=== PATIENT | female | born 1960 | race Caucasian/White ===

== ENCOUNTER 2018-09-13 12:18 | Outpatient (CLI) | payer OTHER, BC, SELFPAY ==
[2018-09-13 14:08] LABS: ALT 159 U/L (12-78); AST 87 U/L (15-37); Alkaline Phosphatase 97 U/L (46-116); Anion Gap 7.4 mmol/L (3-11); BUN 16 mg/dL (7-18); Bilirubin, Total 0.5 mg/dL (0.2-1.0); CO2 27.6 mmol/L (21.0-32.0); CREATININE 0.74 mg/dL (0.55-1.02); Chloride 103 mmol/L (98-107); Cholesterol 196 mg/dL (50-200); Glucose 92 mg/dL (70-100); HDL Cholesterol 52 mg/dL (40-60); LDL CHOLESTEROL 128 mg/dL (<100); Potassium 3.9 mmol/L (3.5-5.1); Sodium 138 mmol/L (136-145); Total Protein 7.4 g/dL (6.4-8.2); Triglyceride 121 mg/dL (30-150); Vitamin B12 422 pg/mL (193-986)
[2018-09-15 09:43] LABS: Hepatitis C Ab w Rflx HCV PCR Negative (NEGAT)
== END 2018-09-13 12:38 ==
PROVIDERS: PCP Family Medicine; Visit Provider Family Medicine
DX: Z00.00 Encounter for general adult medical examination without abnormal findings (principal); E07.9 Disorder of thyroid, unspecified; E78.00 Pure hypercholesterolemia, unspecified; R74.0 Nonspecific elevation of levels of transaminase and lactic acid dehydrogenase [LDH]; M79.644 Pain in right finger(s); M85.80 Other specified disorders of bone density and structure, unspecified site; K76.0 Fatty (change of) liver, not elsewhere classified
CPT/HCPCS: 36415; 80053; 80061; 83721; 86803; 82607; 84439; 84443

== ENCOUNTER 2018-09-27 00:35 | Outpatient (CLI) | payer OTHER, BC, SELFPAY ==
--- NOTE | 2018-09-27 14:15 | DI.MAMMO_ITS ---
SYMPTOM/DIAGNOSIS: SCREENING, Z12.31 MAMMOGRAMS: Mammograms were interpreted according to the usual protocol including computer analysis with CAD system, tomosynthesis and C view imaging. Comparison is made with exams from [id number]. The breasts are composed of fatty density tissue, breast density, Category A. No suspicious masses or suspicious microcalcifications are seen. There has been no significant change. IMPRESSION: Category 1, negative mammogram. Yearly screening mammography is recommended. [facility] ASSESSMENT OF FINDINGS: Negative. Category 1. Patient will receive a letter notifying them of these results. BI-RAD category A. The breasts are almost entirely fatty.
== END 2018-09-27 00:55 ==
PROVIDERS: PCP Family Medicine
DX: Z12.31 Encounter for screening mammogram for malignant neoplasm of breast (principal)
CPT/HCPCS: 77063; 77067

== ENCOUNTER 2018-09-27 01:25 | Outpatient (CLI) | payer OTHER, BC, SELFPAY ==
--- NOTE | 2018-09-27 06:16 | DI.US_ITS ---
SYMPTOM/DIAGNOSIS: ELEVATED LFT'S, FATTY LIVER, K76.0 ABDOMEN ULTRASOUND: Comparison is made with 05/29/09. The liver is enlarged and shows increased echogenicity, consistent with diffuse fatty infiltration. The posterior portions of the liver are not well seen. No focal liver lesions are identified. There is no evidence of biliary dilatation. A few echogenic foci are seen adherent to the brown of the gallbladder, likely representing incidental cholesterol polyps. No stones or wall thickening is seen. The kidneys, spleen and visualized portions of the pancreas are unremarkable. There is no ascites. IMPRESSION: Enlarged fatty liver.
--- NOTE | 2018-09-27 13:08 | DI.RAD_ITS ---
SYMPTOMS/DIAGNOSIS: OSTEOPENIA DEXA SCAN WITH NICK: The NICK image shows mild anterior wedging of T 11 and T 12. The bone mineral density measurements of the lumbar spine correspond to a total T score of -2.1, consistent with osteopenia. The has been a 22.8% decrease when compared with 2004. The bone mineral density measurements of the left hip correspond to a total T score of 0.1 and a femoral neck T score of -0.8, in the normal range. This is not significantly changed from the previous exam. The bone mineral density measurements of the left forearm correspond to a T score of the distal third of 0.4, in the normal range. The forearm was not analyzed in 2004. IMPRESSION: Osteopenia of the lumbar spine with decrease when compared with 2004 of 22.8%. Stable normal bone mineral density of the left hip. Normal bone density of the left forearm.
== END 2018-09-27 01:45 ==
PROVIDERS: PCP Family Medicine; Visit Provider Family Medicine
DX: Z12.31 Encounter for screening mammogram for malignant neoplasm of breast (principal); K76.0 Fatty (change of) liver, not elsewhere classified; R16.1 Splenomegaly, not elsewhere classified; M85.88 Other specified disorders of bone density and structure, other site
CPT/HCPCS: 77080; 76700

== ENCOUNTER 2019-07-05 01:05 | Outpatient (CLI) | payer OTHER, BC, SELFPAY ==
[2019-07-05 14:51] LABS: TSH (W/Ref FT4) 4.84 uIU/mL (0.36-3.74)
[2019-07-05 15:09] LABS: FREE T4 0.85 ng/dL (0.76-1.46)
== END 2019-07-05 01:25 ==
PROVIDERS: PCP Family Medicine; Visit Provider Family Medicine
DX: E03.9 Hypothyroidism, unspecified (principal); Z11.59 Encounter for screening for other viral diseases
CPT/HCPCS: 36415; 86704; 86706; 86803; 87340; 84439; 84443

== ENCOUNTER 2019-07-11 11:14 | Emergency (ER) | payer OTHER, BC, SELFPAY ==
[2019-07-11] VITALS (18 sets, daily range): BP systolic 129–150; BP diastolic 56–72; PULSE 73–84; RESP 20; TEMP 36.6; O2SAT 88–98
--- NOTE | 2019-07-11 11:36 | ED.GENADUL_ITS ---
Discharge Plan Disposition Patient Disposition: HOME Condition: Stable Discharge Details Chief Complaint: Abd Prob Clinical Impression: Abdominal pain, RLQ, Diverticulitis Primary Care Provider: Sarah Wang ED Provider: Sandeep Quiros Home Meds and New Rx's Prescriptions: New ciprofloxacin HCl [Cipro] 500 mg tablet 500 mg PO BID 10 Days Qty: 20 RF: 0 metronidazole [Flagyl] 500 mg tablet 500 mg PO TID 10 Days Qty: 30 RF: 0 hydrocodone-acetaminophen [Burton] 7.5-325 mg tablet 1 tab PO BID PRN (Reason: pain) Qty: 6 RF: 0 No Action levothyroxine 50 mcg tablet 50 mcg PO DAILY Qty: 90 RF: 5 Discharge Instructions Instructions: Diverticulitis (ED) Additional Instructions: At this time we feel that your symptoms are secondary to very early diverticulitis. Please take the Cipro and Flagyl as directed. Please stick with a liquid diet. Please take a maximum of 1000 mg of Tylenol every 6 hours and 800 mg of ibuprofen every 6 hours. I have included a few Burton's for pain, take these only as needed for breakthrough pain. Do not take Tylenol with them as a do have Tylenol in them already. If you notice any worsening of your symptoms, or any new symptoms such as worsening abdominal pain, changes in your abdominal pain, vomiting, diarrhea, fever, chills, shortness of breath, chest pain, numbness, weakness, or fainting , please return immediately to the emergency department for reevaluation. Please follow up with your primary care provider as soon as possible for reassessment and reevaluation. As always, it was a pleasure participating in your medical care today. Stand Alone Forms: Work Release Referrals: Sarah Wang MD, [place] [Primary Care Provider] - Medical Decision Making This is a pleasant 58-year-old female with no significant past medical history except for thyroid disease, Orantes, previous diverticulitis, will presents today for evaluation of abdominal pain for the last 2 to 3 days, sharp in nature, oscillating in severity but notably painful. Significant worsening over the last few days. One episode of diarrhea 2 to 3 days ago but none since. No vomiting. Exam demonstrates notable reproducible tenderness in the right lower quadrant, voluntary guarding, positive Rovsing sign. Differential includes and is highest for appendicitis versus atypical diverticulitis. She has had a tubal ligation in the past. Urinary symptoms less likely. We will get a CT scan, treat her pain, rehydrate and reassess. 1:23 PM The patient's pain is only mildly improved with the morphine. We will be adding Dilaudid. Vital signs remained stable, laboratory work-up relatively unremarkable, CT scan shows normal appendix per virtual radiology, however a notably distended gallbladder. Repeat exam continues to demonstrate the focality of her pain being in the right lower abdominal quadrant, and it is still notably severe. She does have mild right upper quadrant tenderness which does refer down to the right lower though that is reproducible on palpation. Review of the CT scan does show that her gallbladder both is distended but also hangs relatively low, this may be the cause of this. We will get an ultrasound for evaluation of acute cholecystitis. 3:35 PM Ultrasound shows no evidence of acute cholecystitis per radiology, it is distended, and does have 3 internal polyps though. No evidence of obstruction. Repeat review of CT scan with Dr. Rawls, she states that she feels that diverticulitis is notably less likely, and that the inflammation is significantly mild. Repeat assessment continues to demonstrate notable a bdominal tenderness. She has no history of A. fib, and signs and symptoms are appearing consistent with mesenteric ischemia. However her pain is notably persistent. I have asked Dr. Bravo to come and assess the patient secondary to her notable atypical presentation in spite of relatively unremarkable work- up. [address] Bravo has seen and assessed the patient. She too agrees that the ultr asound and CT scan are notably unremarkable in conjunction with her laboratory work-up. She feels that the patient's symptoms may be secondary to very early diverticulitis that is not yet clinically evident on CT scan. She does recommend starting with Cipro and Flagyl and liquid diet. Currently her abdomen is stable, nondistended, with no evidence of an acute surgical abdomen. I do agree with the plan. Patient will be discharged after being given her first dose of antibiotics here. In a long and lengthy discussion with the patient and her regarding red flags for which to return the importance of close follow-up with her PCP. I have extensively reviewed the treatment plan and discharge instructions with the patient and their family. I have addressed all patient concerns at this time. The patient and family was made aware of what symptoms to monitor for that would warrant a return to the emergency department. Discussed the plan with the patient and family, they demonstrate verbal understanding and agreement with our assessment and plan at this time. Exam(s) a US:US abdomen limited EXAM: US ABDOMEN LIMITED CLINICAL HISTORY: eval GB for acute cholecystitis TECHNIQUE: Ultrasound performed using standard protocol. COMPARISON: US ABDOMEN from 09/27/2018 CT ABDOMEN AND PELVIS W from 07/11/2019 FINDINGS: The gallbladder appears somewhat distended; however, there is no evidence of wall thickening or pericholecystic fluid. A few small gallbladder polyps are again noted. The liver was not fully evaluated but shows fatty infiltration. IMPRESSION: Mildly distended gallbladder without definite evidence of acute cholecystitis. Gallbladder polyps are again demonstrated. FINDINGS: There is a tiny nodule at the right lung base, above the right diaphragm which appears unchanged when compared with 2014. The liver again shows fatty infiltration. There may have been slight improvement when compared with the previous exam. The gallbladder is somewhat distended, however, there is no evidence of wall thickening, pericholecystic fluid or inflammatory change. The appendix appears normal and projects in the right upper quadrant, adjacent to the lower border of the liver. There is no bowel dilatation. Numerous diverticula are seen involving the descending and sigmoid colon. The sigmoid colon is redundant. No definite inflammatory changes are seen. There is a moderate quantity of stool. The patient is status post hysterectomy. The bladder appears normal. The adrenals, pancreas and kidneys are unremarkable. The spleen is at the upper limits of normal in size. Degenerative changes are seen greatest in the lower thoracic region and at L4-5. The aorta shows mild calcification but is normal in diameter. IMPRESSION: 1. Enlarged fatty liver. 2. Diverticulosis without definite evidence of diverticulitis. Ordered By: Sandeep Quiros DO FINDINGS: Lungs: Bibasilar atelectasis 4.6 mm pulmonary nodule in the right lower lobe. Liver: Hepatic steatosis Hepatomegaly 24 cm. Gallbladder and bile ducts: Gallbladder is distended 10 cm. Pancreas: Normal. No ductal dilation. Spleen: Splenomegaly 15 cm. Adrenals: Normal. No mass. Kidneys and ureters: 13 mm right renal cyst Stomach and bowel: Diverticulosis of the rectosigmoid. Mild pericolonic inflammatory changes (4:75, 76) may represent mild diverticulitis in the appropriate clinical setting.. Appendix: Normal appendix. Intraperitoneal space: Unremarkable. No free air. No significant fluid collection. Vasculature: Unremarkable. No abdominal aortic aneurysm. Lymph nodes: Unremarkable. No enlarged lymph nodes. Bladder: Distended bladder 14 cm. Reproductive: Unremarkable as visualized. Bones/joints: Unremarkable. No acute fracture. Soft tissues: Unremarkable. IMPRESSION: 1. Gallbladder is distended 10 cm. recommend gallbladder ultrasound if acute cholecystitis is suspected clinically 2. Hepatomegaly 24 cm. 3. Normal appendix. 4. 4.6 mm pulmonary nodule in the right lower lobe. For patients at low risk (minimal or absent history of smoking and of other known risk factors), no routine follow-up is indicated. For patients at high risk (history of smoking or of other known risk factors), consider optional CT at 12 months. (Yojana et al., Fleischner Society, 2017) 5. Diverticulosis of the rectosigmoid. Mild pericolonic inflammatory changes (4:75, 76) may represent mild diverticulitis in the appropriate clinical setting.. 6. Splenomegaly 15 cm. Thank you for allowing us to participate in the care of your patient. Dictated and Authenticated by: Tim Bolanos MD 07/11/2019 1:15 PM Eastern Time ([place] & [place]) HPI General Date/Time Provider Initiated Documentation: 07/11/19 11:16 . HPI Narrative: This is a pleasant 58-year-old female with no significant past medical history except for high cholesterol, diverticulitis, hypothyroidism, and Orantes. She presents today for evaluation of abdominal pain. Patient states that for the last 2 to 3 days she has had mild right lower quadrant abdominal pain that has gradually worsened into a severe pain. It started with an episode of diarrhea 2 to 3 days ago, no continued diarrhea since then. No nausea, no vomiting. Pain is sharp in nature, constant but does oscillate in severity. It radiates slightly to the left. She denies any dysuria, hematuria or increase in urinary frequency. She denies any hematochezia melena or acholic stool. She states that this feels slightly different than her normal diverticulitis. She states that she felt every bump in her abdomen as she came in and drove over potholes. No other complaints at this time. No other modifying factors. Related Data Home Medications Medication Instructions Recorded Confirmed levothyroxine 50 mcg tablet 50 mcg PO DAILY #90 tab 09/17/18 ciprofloxacin HCl [Cipro] 500 mg PO BID 10 Days #20 tab 07/11/19 hydrocodone-acetaminophen [Burton] 1 tab PO BID PRN #6 tab 07/11/19 metronidazole [Flagyl] 500 mg PO TID 10 Days #30 tab 07/11/19 Previous Rx's Medication Instructions Recorded levothyroxine 50 mcg tablet 50 mcg PO DAILY #90 tab 09/17/18 ciprofloxacin HCl [Cipro] 500 mg PO BID 10 Days #20 tab 07/11/19 hydrocodone-acetaminophen [Burton] 1 tab PO BID PRN #6 tab 07/11/19 metronidazole [Flagyl] 500 mg PO TID 10 Days #30 tab 07/11/19 Allergies Allergy/AdvReac Type Severity Reaction Status Date / Time No Known Allergies Allergy Verified 07/11/19 11:22 General Stated Complaint: Abd Prob JOHNATHON: 3 Review of Systems All systems reviewed & are unremarkable except as noted in HPI and below PFSH Medical History (Updated 09/13/18 @ 14:04 by Yumi King NP) Actinic keratosis (Chronic 02/28/18) Fibrocystic disease of breast (Chronic 01/04/12) Gastroesophageal reflux disease with esophagitis (Chronic 01/20/01) Hypercholesterolemia (Chronic 05/27/09) Hypothyroidism (Chronic 02/28/18) Non-alcoholic fatty liver disease (Chronic) by ultrasound and enzyme testing Obstructive sleep apnea syndrome (Chronic 02/28/18) Bipap Surgical History (Updated 06/08/18 @ 14:35 by [employer] 1 [place]) Abdominal hysterectomy (~04/2001) MENORRHAGIA & ENDOMETRIOSIS Bilateral salpingectomy with oophorectomy (~04/2001) Colonoscopy - MAC (06/21/12) DR. Riley MORFIN Hemorrhoidectomy (06/21/12) DR. Riley MORFIN Open Carpal Tunnel release LEFT , Ectopic SHOULDER SURGERY Social History (Updated 09/14/18 @ 09:47 by Henrietta Oden) Smoking/Tobacco Use Status: Former Tobacco Use Quit Date: 08/23/10 Second Hand Exposure: No Alcohol Intake: current Alcohol Intake frequency: 0-2 drinks per day Drug use: Never Substance use type: does not use Caregiver/Support person: No Household members: spouse Pets and animals: No Sexually active: Yes Current gender identity: decline to answer Duration: decline to answer Frequency: 5-6 times per week Chelsi/Christian: [employer] Special chelsi needs: No Do you feel safe at home: Yes Do you feel safe in your relationship?: Yes History History 2 Para 1 Hx # Term Pregnancies Multiple births Hx # Pregnancies Ectopic pregnancies AB induced Hx Number of Living Children AB spontaneous Exam Narrative Exam Narrative: 1.Const: Well-nourished, Well-developed, appearing stated age 2.Eyes: PERRL, no conjunctival injection, and symmetrical lids. 3.ENT: Atraumatic external nose and ears. Moist MM. Neck: Symmetric, trachea midline, No thyromegaly. 4.CVS: +S1/S2, No murmurs or gallops. Peripheral pulses 2+ and equal in all extremities. Brisk capillary refill in all extremities. 5.RESP: Unlabored respiratory effort. Clear to auscultation bilaterally. No wheezes rales or rhonchi 6.GI: Soft,Nondistended, No hepatosplenomegaly. Notable tenderness in the right lower quadrant. Pain is positive McBurney's point, negative Rocha sign. Positive Rovsing sign is present. No pain with heel strike or obturator or psoas sign. Notable pain with movement and palpation of the right CVA. Voluntary guarding. 7.MSK: Normocephalic/Atraumatic, Extremities w/o deformity or ttp No cyanosis or clubbing, Normal movement of all extremities 8.Skin: Warm, Dry. No rashes or lesions. 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 Sensation grossly intact, no focal neurologic deficits. 10.Psych: (AAO) x3. Appropriate mood and affect Course Vital Signs Vital signs: Vital Signs Temperature 36.6 C 07/11/19 11:16 Pulse 80 07/11/19 11:16 Respiratory Rate 20 07/11/19 11:16 Blood Pressure 129/64 07/11/19 11:16 Pulse Oximetry 98 07/11/19 11:16 Temperature 36.6 C 07/11/19 11:16 Temperature Source Skin 07/11/19 11:16 Pulse 80 07/11/19 11:16 Respiratory Rate 20 07/11/19 11:16 Respiratory Effort 07/11/19 11:21 Blood Pressure 129/64 07/11/19 11:16 Blood Pressure Position Sitting 07/11/19 11:16 Pulse Oximetry 98 07/11/19 11:16 Oxygen Delivery Method Room Air 07/11/19 11:16 Oxygen Flow Rate 0 07/11/19 11:16 Pain Level 10 07/11/19 11:16
[2019-07-11] MEDS: Ondansetron 4 MG/2 ML VIAL (12:00)
[2019-07-11] MEDS: Normal Saline 1,000 ML 1000 ML IV (12:00)
[2019-07-11 12:04] LABS: Abs Immature Grans 0.02 k/cumm (0.0-0.09); Absolute Basophil Count 0.01 k/cumm (0.0-0.2); Absolute Eosinophil Count 0.24 k/cumm (0.0-0.7); Absolute Lymphocyte Count 1.65 k/cumm (1.2-3.4); Absolute Neutrophil Count 4.89 k/cumm (1.2-6.7); Basophils % 0.1; Eosinophils % 3.3; HCT 43.3 % (36.0-46.0); HGB 14.7 g/dL (12.0-15.5); Immature Grans % 0.3; Lymphocytes % 22.9; Mean Corp. HGB Concentration 33.9 g/dL (32.0-36.0); Mean Corpuscular Volume 91.4 fL (80-95); Mean Platelet Volume 10.8 fL (8.0-11.0); Monocytes % 5.5; Neutrophils % 67.9; Platelet Count 189 x1000/uL (130-400); RBC 4.74 m/cumm (4.00-5.20); RBC Distribution Width 13.1 % (11.7-14.6); White Blood Cell Count 7.21 k/cumm (4.4-10.8)
[2019-07-11 12:21] LABS: PTT Activated 25.7 sec (21.0-31.4); Prothrombin Time 10.4 sec (9.3-11.0)
[2019-07-11 12:39] LABS: ALT 94 U/L (14-59); AST 52 U/L (15-37); Albumin 4.4 g/dL (3.4-5.0); Alkaline Phosphatase 92 U/L (46-116); Anion Gap 11.8 mmol/L (3-11); BUN 13 mg/dL (7-18); Bilirubin, Total 0.9 mg/dL (0.2-1.0); CO2 24.2 mmol/L (21.0-32.0); CREATININE 0.67 mg/dL (0.55-1.02); Calcium 9.1 mg/dL (8.5-10.1); Chloride 103 mmol/L (98-107); Glucose 90 mg/dL (74-106); Lipase 122 U/L (73-393); Potassium 3.7 mmol/L (3.5-5.1); Sodium 139 mmol/L (136-145); Total Protein 7.9 g/dL (6.4-8.2)
[2019-07-11] MEDS: Omnipaque 350 MG/ML 100 ML BTL IJ (12:44)
--- NOTE | 2019-07-11 13:00 | DI.CT_ITS ---
EXAM: CT ABDOMEN PELVIS W CLINICAL HISTORY: RLQ pain, r/o appendicitis TECHNIQUE: 100 cc Omnipaque 350 IV COMPARISON: ABD PELVIS WITH CONTRAST from 04/23/2014 FINDINGS: There is a tiny nodule at the right lung base, above the right diaphragm which appears unchanged whe n compared with 2014. The liver again shows fatty infiltration. There may have been slight improvem ent when compared with the previous exam. The gallbladder is somewhat distended, however, there is n o evidence of wall thickening, pericholecystic fluid or inflammatory change. The appendix appears no rmal and projects in the right upper quadrant, adjacent to the lower border of the liver. There is n o bowel dilatation. Numerous diverticula are seen involving the descending and sigmoid colon. The s igmoid colon is redundant. No definite inflammatory changes are seen. There is a moderate quantity of stool. The patient is status post hysterectomy. The bladder appears normal. The adrenals, pancr eas and kidneys are unremarkable. The spleen is at the upper limits of normal in size. Degenerative changes are seen greatest in the lower thoracic region and at L4-5. The aorta shows mild calcificat ion but is normal in diameter. IMPRESSION: 1. Enlarged fatty liver. 2. Diverticulosis without definite evidence of diverticulitis.
--- NOTE | 2019-07-11 13:15 | DI.VRAD_ITS ---
PROCEDURE INFORMATION: Exam: CT Abdomen And Pelvis With Contrast Exam date and time: 07/11/2019 12:44 PM Age: 58 years old Clinical history: Abdominal pain; Localized; Right upper quadrant (ruq); Patient HX: Ruq pain and rlq pain. Severe pain this morning. R/O appe TECHNIQUE: Imaging protocol: Computed tomography of the abdomen and pelvis with intravenous contrast. Radiation optimization: All CT scans at this facility use at least one of these dose optimization techniques: automated exposure control; mA and/or kV adjustment per patient size (includes targeted exams where dose is matched to clinical indication); or iterative reconstruction. Contrast material: OMNIPAQUE 350; Contrast volume: 100 ml; Contrast route: IV; COMPARISON: CT ABD PELVIS WITH CONTRAST 04/23/2014 8:07 AM FINDINGS: Lungs: Bibasilar atelectasis 4.6 mm pulmonary nodule in the right lower lobe. Liver: Hepatic steatosis Hepatomegaly 24 cm. Gallbladder and bile ducts: Gallbladder is distended 10 cm. Pancreas: Normal. No ductal dilation. Spleen: Splenomegaly 15 cm. Adrenals: Normal. No mass. Kidneys and ureters: 13 mm right renal cyst Stomach and bowel: Diverticulosis of the rectosigmoid. Mild pericolonic inflammatory changes (4:75, 76) may represent mild diverticulitis in the appropriate clinical setting.. Appendix: Normal appendix. Intraperitoneal space: Unremarkable. No free air. No significant fluid collection. Vasculature: Unremarkable. No abdominal aortic aneurysm. Lymph nodes: Unremarkable. No enlarged lymph nodes. Bladder: Distended bladder 14 cm. Reproductive: Unremarkable as visualized. Bones/joints: Unremarkable. No acute fracture. Soft tissues: Unremarkable. IMPRESSION: 1. Gallbladder is distended 10 cm. recommend gallbladder ultrasound if acute cholecystitis is suspected clinically 2. Hepatomegaly 24 cm. 3. Normal appendix. 4. 4.6 mm pulmonary nodule in the right lower lobe. For patients at low risk (minimal or absent history of smoking and of other known risk factors), no routine follow-up is indicated. For patients at high risk (history of smoking or of other known risk factors), consider optional CT at 12 months. (kaylie Dial al., Fleischner Society, 2017) 5. Diverticulosis of the rectosigmoid. Mild pericolonic inflammatory changes (4:75, 76) may represent mild diverticulitis in the appropriate clinical setting.. 6. Splenomegaly 15 cm. Dictated and Authenticated by: Tim Bolanos MD. Ordering:EMILIE Hopkins MD
--- NOTE | 2019-07-11 13:17 | DI.US_ITS ---
EXAM: US ABDOMEN LIMITED CLINICAL HISTORY: eval GB for acute cholecystitis TECHNIQUE: Ultrasound performed using standard protocol. COMPARISON: US ABDOMEN from 09/27/2018 CT ABDOMEN AND PELVIS W from 07/11/2019 FINDINGS: The gallbladder appears somewhat distended; however, there is no evidence of wall thickening or peric holecystic fluid. A few small gallbladder polyps are again noted. The liver was not fully evaluated but shows fatty infiltration. IMPRESSION: Mildly distended gallbladder without definite evidence of acute cholecystitis. Gallbladder polyps ar e again demonstrated.
[2019-07-11] MEDS: HYDROmorphone 2 MG/ML VIAL 1 MG IVP (13:29)
[2019-07-11] MEDS: Normal Saline 50 ML (13:30)
[2019-07-11] MEDS: Ketorolac 30 MG/ML VIAL IVP (14:54)
[2019-07-11] MEDS: Ciprofloxacin 500 MG TAB PO (15:55)
[2019-07-11] MEDS: metroNIDAZOLE 500 MG TAB PO (15:55)
[2019-07-11 16:14] LABS: Bilirubin Negative (Negative); Blood Negative (Negative); Clarity Clear (Clear); Glucose Negative (Negative); Ketones Negative (Negative); Leukocyte Esterase Negative (Negative); Nitrite Negative (Negative); Specific Gravity <= 1.005 (1.005-1.025); Urobilinogen 0.2 EU/dL (Up TO 0.2); pH 5.5 (5-8)
--- NOTE | 2019-07-11 16:40 | SCONE_ITS ---
Date of service: 07/11/19 Time of Service: 15:30 Assessment and Plan Assessment and plan (1) Abdominal pain: Status: Acute Assessment and plan: A\\ 58 year old with 12 hours of lower abdominal pain. CT scan ? mild diverticulitis by one radiologist. Appendix was well visualized and normal. US of the RUQ showed unremarkable Gallbladder. CT scan did show an enlarged liver and spleen. Labwork unremarkable. P\\ Patient states that this feels like a diverticulitis attack and there is question of mild diverticulitis by one radiologist. She doesn't have an acute abdomen at this time and labs are normal. Recommend treatment with antibiotics for possible diverticulitis. Clear liquid diet x 24 hours Discussed plan with patient and she is in agreement. If symptoms get worse or she dvelops new symptoms then I have asked her to return to the ER for re- evaluation. May need CT scan with contrast. Qualifiers: Abdominal location: lower abdomen, unspecified Qualified Code(s): R10.30 - Lower abdominal pain, unspecified History of Present Illness History of Present Illness Chief Complaint: Abdominal pain Narrative: Mrs. De Jesus is a pleasant 58 year old female who came to the ER today for worsening abdominal pain. She states that she woke up early this morning as usual to get ready for work. She had her 2 cups of coffee as always and went to the bathroom. After that she started to notice some mild lower abdominal pain that radiated from the RLQ to the LLQ and up to the RUQ. She thought maybe she needed to go to the bathroom again but had no results. She went to work and as her shift at [employer] progressed her pain got worse. It finally got to the point were she couldn't bend down to lift a package up so she came to the ER. She has not had any N/V or diarrhea. She has not had any fevers. She tells me that she thought she was having another diverticulitis attack. She is status post Hyesterectomy and bilateral salpingoopherectomy. Lab work in the ER was unremarkable CT scan of the abdomen and pelvis with IV contrast showed a normal long appendix that runs up towards the Gallbladder. Her Gallbladder was distended but there were no stones. One radiologist read thought there was mild stranding around the diverticula in the sigmoid colon. Her sigmoid colon is redundant and comes past midline towards the right side. The second read doesn't discuss diverticulitis. I was called to asses the patient due to continued pain with guarding Consults Consult date: 07/11/19 Requesting physician: Sandeep Quiros Review of Systems Constitutional Constitutional: Denies fever(s), Denies headache(s), Denies poor appetite and Denies weight loss Eyes Eyes: Denies change in vision ENT Ears, Nose, Mouth, and Throat: Denies dysphagia and Denies headache(s) Cardiovascular Cardiovascular: Denies chest pain, Denies chest pain at rest, Denies rapid heart rate, Denies irregular heart rhythm, Denies palpitations, Denies dyspnea and Denies dyspnea on exertion Respiratory Respiratory: Denies cough, Denies dyspnea and Denies dyspnea on exertion Gastrointestinal Gastrointestinal: Reports as per HPI and Denies dysphagia Genitourinary Genitourinary: Denies hematuria and Denies dysuria Musculoskeletal Musculoskeletal: Reports system reviewed and no additional complaints, except as docu and Denies back pain Integumentary/Breasts Skin/Breast: Reports system reviewed and no additional complaints, except as do cu Neurologic Neurologic: Reports system reviewed and no additional complaints, except as docu and Denies headache(s) Psychiatric Psychiatric: Reports system reviewed and no additional complaints, except as docu Endocrine Endocrine: Reports system reviewed and no additional complaints, except as docu and Denies palpitations [facility] Medical History (Updated 07/11/19 @ 16:52 by Radha Bravo MD) Actinic keratosis (Chronic 02/28/18) Fibrocystic disease of breast (Chronic 01/04/12) Gastroesophageal reflux disease with esophagitis (Chronic 01/20/01) Hypercholesterolemia (Chronic 05/27/09) Hypothyroidism (Chronic 02/28/18) Non-alcoholic fatty liver disease (Chronic) by ultrasound and enzyme testing Obstructive sleep apnea syndrome (Chronic 02/28/18) Bipap Surgical History (Updated 06/08/18 @ 14:35 by Equidam TN) Abdominal hysterectomy (~04/2001) MENORRHAGIA & ENDOMETRIOSIS Bilateral salpingectomy with oophorectomy (~04/2001) Colonoscopy - MAC (06/21/12) DR. Riley MORFIN Hemorrhoidectomy (06/21/12) DR. Riley MORFIN Open Carpal Tunnel release LEFT , Ectopic SHOULDER SURGERY Social History (Updated 09/14/18 @ 09:47 by Henrietta Oden) Smoking/Tobacco Use Status: Former Tobacco Use Quit Date: 08/23/10 Second Hand Exposure: No Alcohol Intake: current Alcohol Intake frequency: 0-2 drinks per day Drug use: Never Substance use type: does not use Caregiver/Support person: No Household members: spouse Pets and animals: No Sexually active: Yes Current gender identity: decline to answer Duration: decline to answer Frequency: 5-6 times per week Chelsi/Hinduism: Islam Special chelsi needs: No Do you feel safe at home: Yes Do you feel safe in your relationship?: Yes History History 2 Para 1 Hx # Term Pregnancies Multiple births Hx # Pregnancies Ectopic pregnancies AB induced Hx Number of Living Children AB spontaneous Exam Const General: cooperative, comfortable and no acute distress Nutritional Appearance: obese Orientation: alert and oriented x3 HENMT Head: normocephalic and atraumatic Resp Effort & Inspection: normal respiratory effort Auscultation: clear to auscultation bilaterally Cardio Rate: regular rate Rhythm: regular rhythm Heart Sounds: no gallops, no murmurs and no rubs GI Palpation: soft, no hepatosplenomegaly, no guarding and tender (mild RLQ, suprapubic and LLQ. NO upper abdominal tendeerness) Auscultation: normal bowel sounds Rectal Exam - female: deferred Results Last Vital Signs Temp 97.9 F 07/11/19 11:16 Pulse 84 07/11/19 16:17 Resp 20 07/11/19 11:16 BP 133/67 07/11/19 16:17 Pulse Ox 88 L 07/11/19 16:17 Labs Result diagrams: 07/11/19 11:45 07/11/19 11:45 Labs: Laboratory Results - last 24 hr 07/11/19 07/11/19 07/11/19 11:45 11:45 11:45 WBC 7.21 RBC 4.74 Hgb 14.7 Hct 43.3 MCV 91.4 MCH 31.0 MCHC 33.9 RDW 13.1 Plt Count 189 MPV 10.8 Immature Gran % 0.3 Neutrophils % 67.9 Lymphocytes % 22.9 Monocytes % 5.5 Eosinophils % 3.3 Basophils % 0.1 Absolute Neutrophils 4.89 Absolute Lymphocytes 1.65 Absolute Monocytes 0.40 Absolute Eosinophils 0.24 Absolute Basophils 0.01 PT 10.4 INR 1.0 APTT 25.7 Sodium 139 Potassium 3.7 Chloride 103 Carbon Dioxide 24.2 Anion Gap 11.8 H BUN 13 Creatinine 0.67 Estimated GFR/1.73 m2 >= 60.00 Glucose 90 Calcium 9.1 Total Bilirubin 0.9 AST 52 H ALT 94 H Alkaline Phosphatase 92 Total Protein 7.9 Albumin 4.4 Lipase 122 Urine Color Urine Clarity Urine pH Ur Specific [place] Urine Protein Urine Ketones Urine Blood Urine Nitrite Urine Bilirubin Urine Urobilinogen Ur Leukocyte Esterase Urine Glucose Patient ABO/Rh Antibody Screen 07/11/19 07/11/19 11:45 16:06 WBC RBC Hgb Hct MCV MCH MCHC RDW Plt Count MPV Immature Gran % Neutrophils % Lymphocytes % Monocytes % Eosinophils % Basophils % Absolute Neutrophils Absolute Lymphocytes Absolute Monocytes Absolute Eosinophils Absolute Basophils PT INR APTT Sodium Potassium Chloride Carbon Dioxide Anion Gap BUN Creatinine Estimated GFR/1.73 m2 Glucose Calcium Total Bilirubin AST ALT Alkaline Phosphatase Total Protein Albumin Lipase Urine Color Yellow Urine Clarity Clear Urine pH 5.5 Ur Specific [place] <= 1.005 Urine Protein Negative Urine Ketones Negative Urine Blood Negative Urine Nitrite Negative Urine Bilirubin Negative Urine Urobilinogen 0.2 Ur Leukocyte Esterase Negative Urine Glucose Negative Patient ABO/Rh O Negative Antibody Screen Negative
[2019-07-18 14:01] LABS: HBs Antibody, Qual Negative (See Note); HBs Antibody, Quant <3.1 mIU/mL (See Note)
[2019-07-18 14:34] LABS: Hepatitis B surface Ag Negative (Negative)
[2019-07-18 14:35] LABS: Hepatitis C Ab w Rflx HCV PCR Negative (Negative)
[2019-07-18 14:36] LABS: Hepatitis B Core Antibody Negative (Negative)
== END 2019-07-11 16:18 | disposition home or self-care (01) ==
PROVIDERS: Emergency Provider Student in an Organized Health Care Education/Training Program; PCP Family Medicine
DX: R10.31 Right lower quadrant pain (principal); R16.0 Hepatomegaly, not elsewhere classified; K57.30 Diverticulosis of large intestine without perforation or abscess without bleeding; K76.0 Fatty (change of) liver, not elsewhere classified; R91.1 Solitary pulmonary nodule; R16.1 Splenomegaly, not elsewhere classified
CPT/HCPCS: 36415; 80053; 83690; 86704; 86706; 86803; 86850; 86900; 86901; 87340; 96361; 96374; 96375; 99252; 99282; 99285; 74177; 76705; 81003; 85025; 85610; 85730; 99284; J1885; J2405; J3490

== ENCOUNTER 2020-09-12 03:46 | Outpatient (CLI) | payer OTHER, BC, SELFPAY ==
--- NOTE | 2020-09-12 | DI.MAMMO_ITS ---
EXAM: MG MAMMO SCREENING CLINICAL HISTORY: SCREENING, Z12.39 TECHNIQUE: Bilateral full field digital CC and MLO mammographic images were obtained with 3D tomosyn thesis and utilizing computer aided detection (CAD). COMPARISON: Available for comparison. FINDINGS: Masses/Architectural Distortion: None seen. Microcalcifications: No suspicious pleomorphic-type are seen. Skin Thickening/Nipple Retraction: None. IMPRESSION: 1. No significant interval change with no specific features of malignancy noted. 2. Unless there is more urgent need, screening mammography is recommended, as per [place] [employer] guidelines. BI-RADS Category 1 - Negative Breast Density - Category A - Almost entirely fatty Breast density category C or D implies that the patient has dense breast tissue. Dense breast tissue is very common and is not abnormal but dense breast tissue can make it harder to find cancer on a ma mmogram. Also, dense breast tissue may increase their breast cancer risk. This information about the result of the mammogram report was provided to the patient to raise their awareness. Use this report when you speak with the patient about their risks for breast cancer, which includes their family hist ory. At that time, you may recommend for more screening tests (Ultrasound or MRI) as they might be us eful based on their risk. A negative radiographic report should not delay biopsy if a dominant or clinically suspicious mass is present. Up to ten percent of cancers are not identified on mammography. A negative report may reinforce clinical impression. Adenosis and dense breasts may obscure an underlying neoplasm. False positive reports average 6 to 10%. Patient will receive a letter notifying them of these results.
== END 2020-09-12 04:06 ==
PROVIDERS: PCP Family Medicine; Visit Provider Nurse Practitioner Family
DX: Z12.31 Encounter for screening mammogram for malignant neoplasm of breast (principal)
CPT/HCPCS: 77063; 77067

== ENCOUNTER 2020-09-12 04:55 | Outpatient (CLI) | payer OTHER, BC, SELFPAY ==
[2020-09-12 09:09] LABS: ALT 101 U/L (14-59); AST 49 U/L (15-37); Albumin 4.3 g/dL (3.4-5.0); Alkaline Phosphatase 86 U/L (46-116); Anion Gap 8.6 mmol/L (3-11); BUN 14 mg/dL (7-18); Bilirubin, Total 0.7 mg/dL (0.2-1.0); CO2 26.4 mmol/L (21.0-32.0); CREATININE 0.84 mg/dL (0.55-1.02); Calcium 9.1 mg/dL (8.5-10.1); Calculated LDL 147 mg/dL (<100); Chloride 104 mmol/L (98-107); Cholesterol 213 mg/dL (<200); Glucose 118 mg/dL (74-106); HDL Cholesterol 49 mg/dL (40-60); Potassium 4.3 mmol/L (3.5-5.1); Sodium 139 mmol/L (136-145); TSH (W/Ref FT4) 23.17 uIU/mL (0.36-3.74); Total Protein 7.6 g/dL (6.4-8.2); Triglyceride 88 mg/dL (<150)
[2020-09-12 09:26] LABS: FREE T4 0.78 ng/dL (0.76-1.46)
== END 2020-09-12 05:15 ==
PROVIDERS: PCP Family Medicine; Visit Provider Family Medicine
DX: Z00.00 Encounter for general adult medical examination without abnormal findings (principal); E03.9 Hypothyroidism, unspecified
CPT/HCPCS: 36415; 80053; 80061; 84439; 84443

== ENCOUNTER 2021-01-30 16:22 | Outpatient (REF) | payer OTHER, BC, SELFPAY | END 2021-01-30 16:23 | disposition home or self-care (01) | LOC: LBN 16:22 | PROVIDERS: PCP Family Medicine; Visit Provider Podiatrist | DX: L02.612 Cutaneous abscess of left foot (principal) | CPT/HCPCS: 87070; 87205 ==

== ENCOUNTER 2021-03-13 01:53 | Outpatient (CLI) | payer OTHER, BC, SELFPAY ==
--- NOTE | 2021-03-13 08:00 | DI.RAD_ITS ---
Exam(s) XR KNEE LT 3V AP,LAT,SIMI EXAM: XR KNEE LT 3V AP,LAT,SIMI CLINICAL HISTORY: left knee pain,M25.562. TECHNIQUE: 2D digital imaging was performed. COMPARISON: No exams were available for comparison FINDINGS: There is no evidence of fracture or prominent joint effusion. There are mild degenerative changes in the lateral compartment noted marginal osteophytes but no joint space narrowing. Lesser degenerativ e changes in the medial compartment. Minimal degenerative changes in the patellofemoral compartment. Bone density is normal. No osseous lesions. IMPRESSION: Degenerative changes as described above. DATA REPOSITORY: RADIATION DOSE DELIVERED:
== END 2021-03-13 02:13 ==
PROVIDERS: PCP Family Medicine; Visit Provider Family Medicine
DX: M17.12 Unilateral primary osteoarthritis, left knee (principal)
CPT/HCPCS: 73562

== ENCOUNTER 2021-03-28 07:00 | Day surgery (SDC) | payer OTHER, BC, SELFPAY ==
--- NOTE | 2021-03-28 07:12 | HPE_ITS ---
Date of service: 03/28/21 Time of Service: 07:12 History of Present Illness History of Present Illness Chief Complaint: Cyst of the left hallux Narrative: 60-year-old female with recurring cyst formation over the left great toe with mu ltiple episodes of the rupture and drainage for surgical intervention. She understands risk and complications pertaining to pain, scarring, infection, nerve injury, recurrence of the cyst requiring revisional procedures. [facility] Medical History Actinic keratosis (02/28/18) Fibrocystic disease of breast (01/04/12) Gastroesophageal reflux disease with esophagitis (01/20/01) Hypercholesterolemia (05/27/09) Hypothyroidism (02/28/18) Non-alcoholic fatty liver disease by ultrasound and enzyme testing Obstructive sleep apnea syndrome (02/28/18) Bipap Surgical History Abdominal hysterectomy (~04/2001) MENORRHAGIA & ENDOMETRIOSIS Bilateral salpingectomy with oophorectomy (~04/2001) Colonoscopy - MAC (06/21/12) DR. Riley MORFIN Hemorrhoidectomy (06/21/12) DR. Riley MORFIN Open Carpal Tunnel release LEFT , Ectopic SHOULDER SURGERY Family History Mother Heart disease Thyroid disorder Father , AGE 75 Liver cancer Pancreatic cancer Maternal Grandmother RA (rheumatoid arthritis) Diabetes Maternal Uncle Myocardial infarction Maternal Aunt Heart disease Thyroid disorder Daughter Thyroid cancer Brother , AGE 60 Alcohol abuse Brother , AGE 59 No problems noted. Social History Smoking/Tobacco Use Status: Former Tobacco Use tobacco type: cigarettes Quit Date: 08/23/10 Tobacco: How many years used: 10 Second Hand Exposure: Yes Smoking risk assessment performed?: Yes Alcohol Intake: current Alcohol Intake frequency: 0-2 drinks per day Alcohol type: beer, wine and hard liquor Drug use: Never Substance use type: does not use Caregiver/Support person: No Household members: spouse Housing: house Communication Needs: None Pets and animals: No Sexually active: Yes Do you think of yourself as: straight/heterosexual Current gender identity: female What is your relationship status?: How often do you talk on the phone with friends or family?: three or more times per week How often do you get together with friends or relatives?: once per week How often do you attend cheondoism or mormon services?: 1-3 times per year Do you belong to any clubs or organized social groups?: yes Panel score (0-1 are the most socially isolated patients): 3 What type of physical activity do you participate in: walking Duration: decline to answer Frequency: 5-6 times per week Chelsi/Hoahaoism: Shinto Special chelsi needs: No Seatbelt use: always Helmet use: Yes Helmet use: sometimes Drive intox or ride w/intox tow motor driver: No Do you feel safe at home: Yes Do you feel safe in your relationship?: Yes History History 2 Para 1 Hx # Term Pregnancies Multiple births Hx # Pregnancies Ectopic pregnancies AB induced Hx Number of Living Children AB spontaneous Meds Allergies and Home Medications Allergies Allergy/AdvReac Type Severity Reaction Status Date / Time No Known Allergies Allergy Verified 03/28/21 07:14 Home Medications Medication Instructions Recorded Confirmed Type levothyroxine 75 mcg tablet 75 mcg PO DAILY #90 tab 09/12/20 03/27/21 Rx omeprazole 20 mg capsule,delayed 20 mg PO DAILY #90 cap 10/25/20 03/27/21 Rx release Exam Narrative Exam Narrative: Head is normocephalic Eyes PERRLA Hearing is adequate Uvula was midline airway looks assessable Heart had regular rate rhythm I detected no gallops rubs or murmurs Lung bryan were clear Abdomen was soft, obese, bowel sounds x4 Peripheral pulses manually palpable at the ankle 2 out of 4, CFT under 3 seconds no edema. Skeletal exam remarkable for soft tissue swelling over the interphalangeal joint extending towards the base of the toenail of the left hallux. No active signs of infection no active drainage at this time. Small joint degenerative arthritis appreciated across the forefoot joints. Neurologically grossly intact. Impressions: Soft tissue mass left hallux differential includes mucoid cyst, ganglion, abscess Plan: Anderson is being brought to the OR for surgical exploration and resection of the soft tissue mass. She understands risk and complications of surgery pertaining to pain, scarring, infection, nerve injury, recurrence of the lesion requiring revisional procedures. All questions have been answered in detail. Informed consents been obtained. No promises made to final outcome of surgery.
[2021-03-28 07:17] VITALS: BP 130/75; PULSE 71; RESP 16; TEMP 36.2; O2SAT 95
--- NOTE | 2021-03-28 07:54 | W.ANESPRE ---
General Info Date of Service Date Performed: 03/28/21 Height: 5 ft 8 in Weight: 114.9 kg Body Mass Index (BMI): 38.5 Surgical Procedure: Operation Date: 03/28/21 09:40 Proposed Procedures Side Surgeon p Excision Ganglion Cyst Left Ancelmo Vick DPM Meds Allergies and Home Medications Allergies Allergy/AdvReac Type Severity Reaction Status Date / Time No Known Allergies Allergy Verified 03/28/21 07:14 Home Medication Medication Instructions Recorded levothyroxine 75 mcg tablet 75 mcg PO DAILY #90 tab 09/12/20 omeprazole 20 mg capsule,delayed 20 mg PO DAILY #90 cap 10/25/20 release Current Visit Medications: Current Medications Generic Name Dose Route Start Last Admin Trade Name Freq PRN Reason Stop Dose Admin Sodium Chloride 500 mls @ 0 mls/hr 03/28/21 06:00 Saline 500ml Bag IV PRN PRN As Directed Cefazolin Sodium/Dextrose 2 gm in 50 mls @ 100 mls/hr 03/28/21 06:00 Ancef Duplex IVPB 03/28/21 18:00 PREOP [facility] Ringer's Solution 1,000 mls @ 80 mls/hr 03/28/21 06:00 IV 04/26/21 23:59 INFUSION [facility] IV Miscellaneous Supplies 1 each 03/28/21 06:00 Iv Access IV DIRECTED RAJEEV IV Miscellaneous Supplies 1 each 03/28/21 06:00 Iv Access IV 04/26/21 23:59 DIRECTED RAJEEV Povidone Iodine 0 ml 03/28/21 06:00 Povidone-Iodine Soln. 118 Ml Btl TP DIRECTED RAJEEV Sodium Chloride 0 ml 03/28/21 06:00 Normal Saline Flush 10 Ml Syr IVP PRN PRN Sodium Chloride 0 ml 03/28/21 06:00 Normal Saline Flush 10 Ml Syr IV 04/26/21 23:59 PRN PRN Sodium Chloride 0 ml 03/28/21 06:00 Normal Saline 10 Ml Vial IJ 04/26/21 23:59 DIRECTED PRN Sterile Water 0 ml 03/28/21 06:00 Water,Injection,Sterile 10 Ml Vial IJ 04/26/21 23:59 DIRECTED PRN PFSH Active Problems Active Problems: Problem Status Onset Code Left knee pain M25.562 Toe infection L08.9 Neck pain M54.2 Encounter for annual physical exam Z00.00 Abdominal pain R10.9 Actinic keratosis 02/28/18 L57.0 Fibrocystic disease of breast 01/04/12 N60.19 Gastroesophageal reflux disease with esophagitis 01/20/01 K21.0 Hypercholesterolemia 05/27/09 E78.00 Hypothyroidism 02/28/18 E03.9 Non-alcoholic fatty liver disease K76.0 Obstructive sleep apnea syndrome 02/28/18 G47.33 Medical History Medical History Actinic keratosis (02/28/18) Fibrocystic disease of breast (01/04/12) Gastroesophageal reflux disease with esophagitis (01/20/01) Hypercholesterolemia (05/27/09) Hypothyroidism (02/28/18) Non-alcoholic fatty liver disease by ultrasound and enzyme testing Obstructive sleep apnea syndrome (02/28/18) Bipap Surgical History Surgical History Abdominal hysterectomy (~04/2001) MENORRHAGIA & ENDOMETRIOSIS Bilateral salpingectomy with oophorectomy (~04/2001) Colonoscopy - MAC (06/21/12) DR. Riley MORFIN Hemorrhoidectomy (06/21/12) DR. Riley MORFIN Open Carpal Tunnel release LEFT , Ectopic SHOULDER SURGERY Tobacco Smoking/Tobacco Use Status: Former Tobacco Use Tobacco: How many years used: 10 Passive smoking exposure: Yes Second hand exposure: Yes Alcohol Alcohol Intake: current Alcohol intake frequency: 0-2 drinks per day Alcohol type: beer, wine and hard liquor Substance Use Substance use: Never Substance use type: does not use Prental History History 2 Para 1 Hx # Term Pregnancies Multiple births Hx # Pregnancies Ectopic pregnancies AB induced Hx Number of Living Children AB spontaneous Vital Signs and Lab Results Vital Signs Most Recent Vital Signs in EMR: Most Recent Vital Signs Temp Pulse Resp BP Pulse Ox 36.2 C L 71 16 130/75 95 03/28/21 07:17 03/28/21 07:17 03/28/21 07:17 03/28/21 07:17 03/28/21 07:17 Lab Results Blood Type / Crossmatch: No Data to Display Complete Blood Count: No Data to Display Complete Metabolic Panel: No Data to Display Liver Function Panel: No Data to Display Coagulation Panel: No Data to Display Cardiac Panel: No Data to Display Arterial Blood Gas: No Data to Display Venous Blood Gas: No Data to Display Pancreas Panel: No Data to Display Thyroid Panel: No Data to Display Infectious Disease: No Data to Display Blood Cultures: No Data to Display Toxicology Panel: No Data to Display Anesthesia Assessment and Plan Anesthesia History Personal History: No History of Anesthesia Complications Family History: No Family History of Anesthesia Complications Exercise Tolerance Exercise Tolerance: Metabolic Equivalents>4 Pertinent Negatives Pertinent Negatives: No Major Cardiovascular Symptoms or Complaints and No Major Pulmonary Symptoms or Complaints Cardiac & Pulmonary Exam Cardiac Exam: Normal S1/S2 Heart Sounds Pulmonary Exam: Clear Bilateral Breath Sounds Airway Exam Known Difficult Airway: No Mallampati Class: 2 Mouth Opening: Normal (> 3cm) Thyromental Distance: Greater than 3 cm Neck Range of Motion: Full ROM Neck Circumference: Thick Teeth Condition: Normal Dentition ASA Classification ASA Score: ASA 2 Emergency Case?: No NPO Status NPO Status: NPO Clears >2 hours, Solids >8 hours Anesthesia Plan Resuscitation Status: Full Code Anesthesia Technique: MAC Anesthesia Airway Planned: Natural Airway Monitors Used: Standard Monitors
[2021-03-28 07:57] VITALS: BMI 38.5
[2021-03-28] MEDS: Lactated Ringers 1,000 ML 80 ML IV (08:20)
[2021-03-28] MEDS: ceFAZolin 2 GM/50 ML BAG IVPB (08:36)
[2021-03-28] MEDS: Lidocaine 1% Multi-Dose 50 ML VIAL (08:48)
[2021-03-28] MEDS: Bupivacaine 0.5% Pres-Free 30 ML VIAL (08:48)
[2021-03-28] MEDS: Dexamethasone 4 MG/ML VIAL (09:03)
--- NOTE | 2021-03-28 09:15 | W.PM.DSUDISC ---
Discharge Plan Disposition Patient Disposition: HOME Condition: Good Discharge Details Reason For Visit: Exploration with debridement left hallux cyst Attending Provider: Ancelmo Vick Primary Care Provider: Sarah Wang Home Meds and New Rx's Prescriptions: New hydrocodone-acetaminophen 5-325 mg tablet 1 tab PO Q6H PRNQty: 9 RF: 0 Continued levothyroxine 75 mcg tablet 75 mcg PO DAILY Qty: 90 RF: 5 omeprazole 20 mg capsule,delayed release(DR/EC) 20 mg PO DAILY Qty: 90 RF: 6 Discharge Instructions Activity:: Elevate Remove Dressings/Wound Care:: Do Not Remove Shower/Bathe:: Cover Diet:: Carb Counting Discharge Orders Discharge Orders: Discharge Order (Routine); Ordered 03/28/21 Ordered By: Ancelmo Vick DS: Diagnosis Discharge Diagnosis (1) Toe infection: Status: Acute (2) Abscess around fingernail of right hand: Status: Acute
--- NOTE | 2021-03-28 09:19 | W.PM.OP ---
Date of service: 03/28/21 Time of Service: 09:19 Operative Note Operative Note DATE OF PROCEDURE: 03/28/21 PRE-OP DIAGNOSIS: Cyst?abscess left hallux PROCEDURE: Exploration with debridement cyst left hallux SURGEON: Ancelmo Vick ANESTHESIA TYPE: General:No Airway Refer to Anesthesia Record ESTIMATED BLOOD LOSS: 1 PATHOLOGY: none sent TOURNIQUET TIME: 10 COMPLICATIONS: None Patient was transported to: same day Patient's condition: stable Findings: Liss was brought to the operative suite placed in supine position with the left foot was prepped and draped in usual sterile podiatric fashion. Timeout was performed by protocol. The left hallux was anesthetized with 8 cc of a 50: 50 mixture 1% lidocaine plain, 0.5 Marcaine plain then supplemented with an additional 4 cc 1% lidocaine with epinephrine. Tourniquet was applied to the base of the toe. A hockey-stick incision was placed starting at the base of the distal phalanx and running along the medial side of the nail plate. The incision was deepened with a 15 scalpel in controlled depth. No purulence was identified during this dissection. An area of fibrosis was appreciated along the proximal medial aspect of the incision just behind the medial nail fold and this was sharply removed and then curettage. Deeper dissection was then performed and no additional pathologic findings were noted. Additional curettage was performed going down to the base of the distal phalanx. Copious irrigation was performed. The wound was injected with 4 mg of dexamethasone phosphate. The wound was closed with simple interrupted suture 4-0 nylon and a compression dressing applied consisting of Xeroform fluffs Kerlex rolls stockinette and Yonny wrap. Liss left the OR with vital signs stable vascular status intact sharp and sponge counts were correct. Should be followed by myself in the office next week.
[2021-03-28 09:27] VITALS: BP 126/73; PULSE 63; RESP 16; TEMP 36.2; O2SAT 94
[2021-03-28 09:53] VITALS: BP 136/73; PULSE 61; RESP 16; TEMP 36.2; O2SAT 96
--- NOTE | 2021-03-28 14:10 | W.ANESPOSTOP ---
Postoperative Evaluation Date, Time and Location Date Performed: 03/28/21 Time Performed: 09:25 Patient Location: Day Surgery Unit Vital Signs Most Recent Imported Vital Signs: Most Recent Vital Signs Temp Pulse Resp BP Pulse Ox 36.2 C L 61 16 136/73 96 03/28/21 09:53 03/28/21 09:53 03/28/21 09:53 03/28/21 09:53 03/28/21 09:53 Pain Score Most Recent Pain Score: Most Recent Pain Score Pain Level 7 03/28/21 09:53 Assessment Mental Status: Awake (Alert & Oriented to Patient Baseline) Airway and Respiratory Function: Patent airway with normal (patient baseline) respiratory exam Cardiovascular Function: Hemodynamically Stable Hydration Status: Adequately Hydrated Nausea & Vomiting: No Nausea or Vomiting Pain: Pt. Denies Any Pain Peripheral Nerve Block: Patient did not receive a nerve block
== END 2021-03-28 10:25 | disposition home or self-care (01) ==
PROVIDERS: PCP Family Medicine; Visit Provider Podiatrist
PROC: (CPT 11042; principal; 2021-03-28 09:30)
DX: L72.8 Other follicular cysts of the skin and subcutaneous tissue (principal)
CPT/HCPCS: 11042; J0690; J1100; J1885; J2001; J2250; J2704; J3010

== ENCOUNTER 2021-06-26 14:45 | Outpatient (CLI) | payer OTHER, BC, SELFPAY ==
--- NOTE | 2021-06-26 14:15 | DI.RAD_ITS ---
Exam(s) XR CERVICAL SPINE COMP 4-5V EXAM: XR CERVICAL SPINE COMP 4-5V CLINICAL HISTORY: neck pain - more on right,m54.2. TECHNIQUE: 2D digital imaging was performed. COMPARISON: No exams were available for comparison FINDINGS: There is no evidence of fracture, listhesis, nor offset of the spinal laminar line. There is moderat e disc space narrowing at C4-5, C5-6, and C6-7 levels. On the oblique views there are small bilatera l Luschka joint osteophytes at these levels. There is mild multilevel facet degenerative changes. N o cervical ribs. No osseous lesions. There is straightening but no bursal of the cervical curvature. IMPRESSION: Degenerative disc disease. DATA REPOSITORY: RADIATION DOSE DELIVERED:
== END 2021-06-26 15:05 ==
PROVIDERS: PCP Family Medicine; Visit Provider Family Medicine
DX: M54.2 Cervicalgia (principal); M50.321 Other cervical disc degeneration at C4-C5 level; M50.322 Other cervical disc degeneration at C5-C6 level; M50.323 Other cervical disc degeneration at C6-C7 level
CPT/HCPCS: 72050

== ENCOUNTER 2021-07-08 08:35 | Outpatient (CLI) | payer OTHER, BC, SELFPAY ==
--- NOTE | 2021-07-08 | DI.MRI_ITS ---
Exam(s) MR LOWER EXTREMITY LT WO/W CLINICAL HISTORY: OSTEOMYELITIS LT HALLUX. TECHNIQUE: Multiplanar multisequence MRI was performed. CONTRAST MATERIAL: IV Contrast: 20 mL of Dotarem contrast administered. COMPARISON: None. FINDINGS: A soft tissue defect is seen at the distal aspect of the distal phalanx of the great toe, dorsally an d medially. There is no drainable collection. The marrow signal is normal. There is no abnormal en hancement. Degenerative changes are seen at the 1st MTP joint. Degenerative changes are also noted at the tarsal metatarsal joints. IMPRESSION: No evidence of osteomyelitis of the great toe. Soft tissue defect. DATA REPOSITORY:
[2021-07-08] MEDS: Normal Saline Flush 10 ML SYR IVP (12:28)
[2021-07-08] MEDS: Gadoterate meglumine 20 ML VIAL IVP (12:29)
== END 2021-07-08 08:55 ==
PROVIDERS: PCP Family Medicine; Visit Provider Podiatrist
DX: M79.89 Other specified soft tissue disorders (principal); M20.5X2 Other deformities of toe(s) (acquired), left foot; M19.072 Primary osteoarthritis, left ankle and foot
CPT/HCPCS: 73720

== ENCOUNTER 2021-08-14 02:47 | Outpatient (CLI) | payer OTHER, BC, SELFPAY ==
--- NOTE | 2021-08-14 07:00 | DI.MRI_ITS ---
Exam(s) MR CERVICAL SPINE WO EXAM: MR CERVICAL SPINE WO CLINICAL HISTORY: severe neck pain, failed PT,PRE PAIN CLINIC,DJD,HEADACHE,SPONDYLOSIS TECHNIQUE: Multiplanar multisequence MRI of the cervical spine was performed without intravenous con trast. COMPARISON: CR XR CERVICAL SPINE COMP 4-5V from 06/26/2021 CR XR CERVICAL SPINE COMP 4-5V from 06/26/2021 FINDINGS: BONES: Vertebral body heights are maintained. Bone marrow signal intensity is within normal limits. Hemangioma T2. CERVICAL CORD: Craniovertebral junction is unremarkable. The cervical cord is normal size and signal intensity. SOFT TISSUES: Unremarkable. C2-3: No disc herniation or bulge is identified. C3-4: Tiny central disc protrusion. No central clip canal stenosis or neural foraminal narrowing. C4-5: Albc-ay-sioylqzd loss of disc height, endplate osteophytes in the degenerative signal changes. Mild diffuse disc bulging. No significant central canal stenosis. Left neural foraminal narrowing. C5-6: Mild loss of disc height. Endplate osteophytes and mild concentric disc bulging. Mild effacem ent of the anterior CSF space. Ylfx-[id number]-[id number] bilateral neural foraminal narrowing. C6-7: Moderate loss of disc height, endplate osteophytes, concentric disc bulging and degenerative si gnal changes in the endplates. Mild effacement of the anterior CSF space. Neural foraminal narrowin g greater on the left. C7-T1: No disc herniation or bulge is identified. IMPRESSION: Degenerative disc changes from C L4-5 through C6-7 cause mild effacement of the anterior CSF space. Neural foraminal narrowing is noted greater on the left. Tiny central disc protrusion at C3-4.. DATA REPOSITORY:
== END 2021-08-14 03:07 ==
PROVIDERS: PCP Family Medicine; Visit Provider Family Medicine
DX: R51.9 Headache, unspecified (principal); M47.812 Spondylosis without myelopathy or radiculopathy, cervical region; M54.2 Cervicalgia; M50.321 Other cervical disc degeneration at C4-C5 level; M50.323 Other cervical disc degeneration at C6-C7 level; M50.21 Other cervical disc displacement, high cervical region
CPT/HCPCS: 72141

== ENCOUNTER 2021-09-24 03:12 | Outpatient (CLI) | payer OTHER, BC, SELFPAY ==
[2021-09-24 11:58] LABS: Source Nasal/Nares
[2021-09-24 16:13] LABS: COVID-19 PCR Negative (Negative)
== END 2021-09-24 03:13 | disposition home or self-care (01) ==
LOC: LBO 03:12
PROVIDERS: PCP Family Medicine; Visit Provider Podiatrist
DX: Z20.822 Contact with and (suspected) exposure to COVID-19 (principal)
CPT/HCPCS: 87635

== ENCOUNTER 2021-09-26 07:16 | Day surgery (SDC) | payer OTHER, BC, SELFPAY ==
--- NOTE | 2021-09-25 20:50 | HPE_ITS ---
Date of service: 09/26/21 Time of Service: 08:54 History of Present Illness History of Present Illness Chief Complaint: recurrent abscess of the left hallux Narrative: 60 YO with recurring infections affecting the dorsal medial aspect of the left hallux. PFSH All Active Problems Myelopathy concurrent with and due to spinal stenosis of cervical region (Acute) Headache (Acute) DJD (degenerative joint disease) of cervical spine (Acute) DDD (degenerative disc disease), cervical (Acute) Cervical pain (neck) (Acute) Abscess around fingernail of right hand (Acute) Left knee pain (Acute) Toe infection (Acute) Neck pain (Acute) Encounter for annual physical exam (Acute) Abdominal pain (Acute) Actinic keratosis (Chronic 02/28/18) Fibrocystic disease of breast (Chronic 01/04/12) Gastroesophageal reflux disease with esophagitis (Chronic 01/20/01) Hypercholesterolemia (Chronic 05/27/09) Hypothyroidism (Chronic 02/28/18) Non-alcoholic fatty liver disease (Chronic) by ultrasound and enzyme testing Obstructive sleep apnea syndrome (Chronic 02/28/18) Bipap Surgical History Abdominal hysterectomy (~04/2001) MENORRHAGIA & ENDOMETRIOSIS Bilateral salpingectomy with oophorectomy (~04/2001) Colonoscopy - MAC (06/21/12) DR. Riley MORFIN Hemorrhoidectomy (06/21/12) DR. Riley MORFIN Open Carpal Tunnel release LEFT , Ectopic SHOULDER SURGERY Family History Mother Heart disease Thyroid disorder Father , AGE 75 Liver cancer Pancreatic cancer Maternal Grandmother RA (rheumatoid arthritis) Diabetes Maternal Uncle Myocardial infarction Maternal Aunt Heart disease Thyroid disorder Daughter Thyroid cancer Brother , AGE 60 Alcohol abuse Brother , AGE 59 No problems noted. Social History Smoking/Tobacco Use Status: Former Tobacco Use tobacco type: cigarettes Quit Date: 08/23/10 Tobacco: How many years used: 10 Second Hand Exposure: Yes Smoking risk assessment performed?: Yes Alcohol Intake: current Alcohol Intake frequency: 0-2 drinks per day Alcohol type: beer, wine and hard liquor Drug use: Never Substance use type: does not use Caregiver/Support person: No Household members: spouse Housing: house Communication Needs: None Pets and animals: No Sexually active: Yes Do you think of yourself as: straight/heterosexual Current gender identity: female What is your relationship status?: How often do you talk on the phone with friends or family?: three or more times per week How often do you get together with friends or relatives?: once per week How often do you attend sikhism or roman catholic services?: 1-3 times per year Do you belong to any clubs or organized social groups?: yes Panel score (0-1 are the most socially isolated patients): 3 What type of physical activity do you participate in: walking Duration: decline to answer Frequency: 5-6 times per week Chelsi/Pentecostalism: Rastafari Special chelsi needs: No Seatbelt use: always Helmet use: Yes Helmet use: sometimes Drive intox or ride w/intox after school driver: No Do you feel safe at home: Yes Do you feel safe in your relationship?: Yes History History 2 Para 1 Hx # Term Pregnancies Multiple births Hx # Pregnancies Ectopic pregnancies AB induced Hx Number of Living Children AB spontaneous Meds Allergies and Home Medications Allergies Allergy/AdvReac Type Severity Reaction Status Date / Time No Known Allergies Allergy Verified 09/23/21 14:24 Home Medications Medication Instructions Recorded Confirmed Type levothyroxine 75 mcg tablet 75 mcg PO DAILY #90 tab 09/12/20 09/23/21 Rx omeprazole 20 mg capsule,delayed 20 mg PO DAILY #90 cap 10/25/20 09/23/21 Rx release celecoxib 200 mg capsule 200 mg PO DAILY #90 cap 08/05/21 09/23/21 Rx cyclobenzaprine 10 mg tablet 10 mg PO HS PRN #30 tab 08/05/21 09/23/21 Rx gabapentin 100 mg capsule 100 mg PO TID #90 cap 08/19/21 09/23/21 Rx Exam Narrative Exam Narrative: 60 YO female in NAD Heads normo cephalic Eyes PERRLA Hearing is adequate Uvula is midline Heart had RRR, No gallops, rubs or murmurs noted Lung bryan are clear Abdomen is soft, BS x 4 Peripheral pulses are 2/4, CFT< 3 sec, no edema. Feet are warm to the touch Muscle gps are 5/5 Skeletal e3xam reveals a crusted lesion just proximal and medial to the hallux nail plate. Currently tense with a seroud/red fluid noted. No cellulites. The IPJ is pain free with good ROM. No heat or swelling noted. Neuro: grossly in tact Imp: abscess left hallux Mucoid cyst? Plan: Lucy is being brought to the OR for exploration and debridement of this lesion. She understands risks and complications related to pain, scarring, infection, recurrence of condition. All qeustions have been answered in detail. Informed consent obtained.
[2021-09-26 07:30] VITALS: BP 131/88; PULSE 76; RESP 16; TEMP 36.6; O2SAT 98
[2021-09-26] MEDS: Lactated Ringers 1,000 ML 80 ML IV (08:04)
--- NOTE | 2021-09-26 08:08 | W.ANESPRE ---
General Info Date of Service Date Performed: 09/26/21 Height: 5 ft 8 in Weight: 116.4 kg Body Mass Index (BMI): 38.9 Surgical Procedure: Operation Date: 09/26/21 08:40 Proposed Procedures Side Surgeon p Exploration Abscess Lt Hallux Left Ancelmoroderick Vick DPM Meds Allergies and Home Medications Allergies Allergy/AdvReac Type Severity Reaction Status Date / Time No Known Allergies Allergy Verified 09/26/21 07:41 Home Medication Medication Instructions Recorded levothyroxine 75 mcg tablet 75 mcg PO DAILY #90 tab 09/12/20 omeprazole 20 mg capsule,delayed 20 mg PO DAILY #90 cap 10/25/20 release Current Visit Medications: Current Medications Generic Name Dose Route Start Last Admin Trade Name Freq PRN Reason Stop Dose Admin Sodium Chloride 500 mls @ 0 mls/hr 09/26/21 06:00 Saline 500ml Bag IV PRN PRN As Directed Cefazolin Sodium/Dextrose 2 gm in 50 mls @ 100 mls/hr 09/26/21 06:00 Ancef Duplex IVPB 09/26/21 16:00 PREOP RAJEEV Ringer's Solution 1,000 mls @ 80 mls/hr 09/26/21 06:00 09/26/21 08:04 IV 10/20/21 23:59 80 mls/hr INFUSION RAJEEV Administration IV Miscellaneous Supplies 1 each 09/26/21 06:00 Iv Access IV 10/20/21 23:59 DIRECTED RAJEEV Povidone Iodine 0 ml 09/26/21 06:00 Povidone-Iodine Soln. 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 of cervical region M48.02, G99.2 Headache R51.9 DJD (degenerative joint disease) of cervical spine M47.812 DDD (degenerative disc disease), cervical M50.30 Cervical pain (neck) M54.2 Abscess around fingernail of right hand L03.011 Left knee pain M25.562 Toe infection L08.9 Neck pain M54.2 Encounter for annual physical exam Z00.00 Abdominal pain R10.9 Actinic keratosis 02/28/18 L57.0 Fibrocystic disease of breast 01/04/12 N60.19 Gastroesophageal reflux disease with esophagitis 01/20/01 K21.0 Hypercholesterolemia 05/27/09 E78.00 Hypothyroidism 02/28/18 E03.9 Non-alcoholic fatty liver disease K76.0 Obstructive sleep apnea syndrome 02/28/18 G47.33 Surgical History Surgical History Abdominal hysterectomy (~04/2001) MENORRHAGIA & ENDOMETRIOSIS Bilateral salpingectomy with oophorectomy (~04/2001) Colonoscopy - MAC (06/21/12) DR. Riley MORFIN Hemorrhoidectomy (06/21/12) DR. Riley MORFIN Open Carpal Tunnel release LEFT , Ectopic SHOULDER SURGERY Tobacco Smoking/Tobacco Use Status: Former Tobacco Use Tobacco: How many years used: 10 Passive smoking exposure: Yes Second hand exposure: Yes Alcohol Alcohol Intake: current Alcohol intake frequency: 0-2 drinks per day Alcohol type: beer, wine and hard liquor Substance Use Substance use: Never Substance use type: does not use Prental History History 2 Para 1 Hx # Term Pregnancies Multiple births Hx # Pregnancies Ectopic pregnancies AB induced Hx Number of Living Children AB spontaneous Vital Signs and Lab Results Vital Signs Most Recent Vital Signs in EMR: Most Recent Vital Signs Temp Pulse Resp BP Pulse Ox 36.6 C 76 16 131/88 98 09/26/21 07:30 09/26/21 07:30 09/26/21 07:30 09/26/21 07:30 09/26/21 07:30 Lab Results Blood Type / Crossmatch: No Data to Display Complete Blood Count: No Data to Display Complete Metabolic Panel: No Data to Display Liver Function Panel: No Data to Display Coagulation Panel: No Data to Display Cardiac Panel: No Data to Display Arterial Blood Gas: No Data to Display Venous Blood Gas: No Data to Display Pancreas Panel: No Data to Display Thyroid Panel: No Data to Display Infectious Disease: Coronavirus (COVID-19)(PCR) Negative (Negative) 09/24/21 10:58 09/24/21 Coronavirus 2019 Source Nasal/Nares 09/24/21 10:58 09/24/21 Blood Cultures: No Data to Display Toxicology Panel: No Data to Display Anesthesia Assessment and Plan Anesthesia History Personal History: No History of Anesthesia Complications Family History: No Family History of Anesthesia Complications Exercise Tolerance Exercise Tolerance: Metabolic Equivalents>4 Pertinent Negatives Pertinent Negatives: No Symptoms of GERD, No Major Cardiovascular Symptoms or Complaints, No Major Pulmonary Symptoms or Complaints and No History of CVA/TIA Cardiac & Pulmonary Exam Cardiac Exam: Normal S1/S2 Heart Sounds Pulmonary Exam: Clear Bilateral Breath Sounds Implantable Cardiac Device Does patient have a Pacemaker or an ICD?: No Airway Exam Known Difficult Airway: No Mallampati Class: 2 Mouth Opening: Normal (> 3cm) Thyromental Distance: Greater than 3 cm Neck Range of Motion: Full ROM Neck Circumference: Thick Teeth Condition: Normal Dentition ASA Classification ASA Score: ASA 3 Emergency Case?: No NPO Status NPO Status: NPO Clears >2 hours, Solids >8 hours Anesthesia Plan Resuscitation Status: Full Code Anesthesia Technique: General Anesthesia Airway Planned: Natural Airway Monitors Used: Standard Monitors
[2021-09-26 08:11] VITALS: BMI 38.9
[2021-09-26] MEDS: ceFAZolin 2 GM/50 ML BAG IVPB (08:40)
[2021-09-26] MEDS: Bupivacaine 0.5% Pres-Free 30 ML VIAL (08:43)
[2021-09-26] MEDS: Dexamethasone 4 MG/ML VIAL (09:16)
--- NOTE | 2021-09-26 09:24 | W.PM.DSUDISC ---
Discharge Plan Disposition Patient Disposition: HOME Condition: Good Discharge Details Reason For Visit: Exploration, excision mucoid cyst left hallux Attending Provider: Ancelmo Vick Primary Care Provider: Joan Moya Home Meds and New Rx's Prescriptions: New hydrocodone-acetaminophen 5-325 mg tablet 1 tab PO Q6H PRN (Reason: pain) Qty: 9 RF: 0 ibuprofen 600 mg tablet 600 mg PO Q6H PRN (Reason: pain and inflammation) Qty: 60 RF: 0 Continued levothyroxine 75 mcg tablet 75 mcg PO DAILY Qty: 90 RF: 5 omeprazole 20 mg capsule,delayed release(DR/EC) 20 mg PO DAILY Qty: 90 RF: 6 Discharge Instructions Activity:: Elevate Remove Dressings/Wound Care:: Do Not Remove Shower/Bathe:: Cover Diet:: Normal Diet Discharge Orders Discharge Orders: Discharge Order (Routine); Ordered 09/26/21 Ordered By: Ancelmo Vick DS: Diagnosis Discharge Diagnosis (1) Mucoid cyst of joint: Status: Acute
[2021-09-26 09:25] VITALS: BP 128/84; PULSE 86; RESP 20; TEMP 36.2; O2SAT 96
--- NOTE | 2021-09-26 09:29 | ROE_ITS ---
Date of service: 09/26/21 Time of Service: 09:29 Operative Note Operative Note DATE OF PROCEDURE: 09/26/21 PRE-OP DIAGNOSIS: Mucoid cyst?abscess left hallux PROCEDURE: Exploration with excision mucoid cyst and primary repair, left hallux SURGEON: Ancelmo Vick ANESTHESIA TYPE: General:No Airway Refer to Anesthesia Record ESTIMATED BLOOD LOSS: 1 PATHOLOGY: other COMPLICATIONS: None Patient was transported to: same day Patient's condition: stable Indications: 60-year-old female with recurrent abscess formation affecting the left great toe with clinical findings consistent with a mucoid cyst. In spite of previous surgical intervention the pathology has recurred causing recurring infection and pain. She is being brought to the OR for exploration of this ongoing problem. She understands potential risk and complications of surgery to include pain, scarring, infection, nerve injury, recurrence of deformity requiring additional surgical intervention. All questions have been answered in detail. No promises made to the final outcome of surgery. Informed consent has been obtained. Procedure Description: Anderson was brought to the operative suite placed in supine position with the left great toe was prepped and draped in the usual sterile podiatric fashion. Anesthesia was achieved through general and local block of the great toe consisting of 10 cc 50: 50 mixture 1% lidocaine with epinephrine, 0.5% Marcaine plain. Timeout was performed for safe surgery. An Esmarch tourniquet was applied at the base of the great toe. Attention was directed to the cystic region medial and proximal to the medial nail fold of the great toe. A Lizemores elevator was gently inserted along the medial groove of the nail edge and gently probed we got back to the proximal nail fold region without disruption of the cystic region. I removed the nail plate gently by it from the underlying nail bed and gently avulsing it. Further exploration of the proximal nail fold was completely benign. Attention was now directed dorsally and an incision was made from the corner of the hyponychium proximally to the cystic region the skin was gently opened and deepened and once again I did not disrupt the cystic region and I saw no signs of foreign material or pathology at this level I then brought my attention to the interphalangeal joint where a incision was made in line from the dorsal medial side of the joint to the cystic region this was gently deepened and the cyst eventually entered with thick gelatinous material was appreciated this material was cultured aerobic and anaerobically and certainly had the presentation of that coming from a mucoid cyst structure. The jelly was evacuated the cyst was followed back proximally and indeed there appeared to be a small defect of the interphalangeal joint dorsal medially soft tissue mobilization was performed with blunt and sharp dissection the interphalangeal joint defect was visualized and primarily closed with simple interrupted suture of 3-0 Vicryl copious irrigation was then performed I excised the mucoid cyst region bring in good healthy skin margins back together utilizing simple interrupted suture 4-0 nylon the wound was dressed with Xeroform gauze fluff compression dressings and the Esmarch bandage removed vascularity returned immediately to the digit without difficulty. Liss left the OR with vital signs stable, sharp and sponge counts were correct. She will be followed by myself in the office next week. Dictated with Omar naturally speaking, not reviewed for photographic enlarger operator accuracy
--- NOTE | 2021-09-26 09:32 | W.ANESPOSTOP ---
Postoperative Evaluation Date, Time and Location Date Performed: 09/26/21 Time Performed: 09:32 Patient Location: Day Surgery Unit Vital Signs Most Recent Imported Vital Signs: Most Recent Vital Signs Temp Pulse Resp BP Pulse Ox 36.2 C L 86 20 128/84 96 09/26/21 09:25 09/26/21 09:25 09/26/21 09:25 09/26/21 09:25 09/26/21 09:25 Pain Score Most Recent Pain Score: Most Recent Pain Score Pain Level 0 09/26/21 09:25 Assessment Mental Status: Awake (Alert & Oriented to Patient Baseline) Airway and Respiratory Function: Patent airway with normal (patient baseline) respiratory exam Cardiovascular Function: Hemodynamically Stable Hydration Status: Adequately Hydrated Nausea & Vomiting: No Nausea or Vomiting Pain: Pt. Denies Any Pain Peripheral Nerve Block: Patient did not receive a nerve block
[2021-09-26 10:02] VITALS: BP 131/77; PULSE 76; RESP 20; TEMP 36.1; O2SAT 97
== END 2021-09-26 07:17 | disposition home or self-care (01) ==
PROVIDERS: PCP Family Medicine; Visit Provider Podiatrist
PROC: (CPT 28092; principal; 2021-09-26 08:30)
DX: M67.472 Ganglion, left ankle and foot (principal); K21.9 Gastro-esophageal reflux disease without esophagitis; G47.33 Obstructive sleep apnea (adult) (pediatric); E03.9 Hypothyroidism, unspecified; E78.00 Pure hypercholesterolemia, unspecified
CPT/HCPCS: 28092; 87077; 87070; 87075; 87186; 87205; J0690; J1100; J1885; J2001; J2250; J2405

== ENCOUNTER 2021-10-06 01:03 | Outpatient (CLI) | payer OTHER, BC, SELFPAY ==
--- NOTE | 2021-10-06 10:00 | NS.NUTBLAN_ITS ---
Liss was referred to Medical Nutrition Therapy for weight and lipid management. 5'8 257.5 lbs (boots) BMI: 38.9. PMH: non alcoholic fatty livr, obesity, HLD, HTN. Liss reports that she has gained about 50 lbs in last 10 years after she stopped smoking. Labs: (09/12/10): chol: 213, LDL: 147, HDL: 49, TSH: high Meds: levothyroxine, statin Diet recall: taco salad, chicken and vegetables. Eats lunch and dinner. Sleeps from 8:30 p- 2 am. Works 3:30am - noon daily at [employer]. Very stressful job Exercise: none Session today focused on weight loss goals for Liss. Liss would like to go down to 170 lbs in next 6 months. She has tried many diets over the years but keeps gaining weight. We discussed how cortisol plays a factor into weight gain when working nights and how insulin resistance can make it difficult to lose weight. Provided education on role of weight loss surgery and eligibility criteria. Liss is eligible for weight loss surgery and most likely would lose 80-100 lbs in the first 6 months. She is agreeable to meet with Trupti Galvan at next visit to discuss bariatric surgery in more detail. Follow up appt. scheduled for 10/27/21 at 11 am.
== END 2021-10-06 01:04 | disposition home or self-care (01) ==
LOC: DS 01:03
PROVIDERS: PCP Family Medicine; Visit Provider Dietitian, Registered
DX: E78.5 Hyperlipidemia, unspecified (principal); E66.8 Other obesity; Z68.38 Body mass index [BMI] 38.0-38.9, adult; Z71.3 Dietary counseling and surveillance
CPT/HCPCS: 97802

== ENCOUNTER 2021-10-14 02:46 | Outpatient (CLI) | payer OTHER, BC, SELFPAY ==
--- NOTE | 2021-10-14 07:30 | DI.DEXA_ITS ---
Exam(s) XR DEXA BONE DENSITY W/WO NICK EXAM: XR DEXA BONE DENSITY W/WO NICK CLINICAL HISTORY: f/u osteopenia,M85.88 TECHNIQUE: COMPARISON: CR LUMBAR SPINE COMPLETE from 04/05/2012 FINDINGS: DEXA scan was performed according to the usual protocol. Please see the accompanying data sheets. F indings for left hip scanning are T-score -0.2 with left femoral neck T-score -1.0. Prior examinatio n of September 2018 showed left hip T-score 0.1. Findings for lumbar spine scanning are T-score -2.1, this is unchanged from prior examination of 2019 . Left forearm scanning shows T-score 0.1, prior examination of September 2018 showed T-score 0.4. IMPRESSION: The findings are consistent with osteopenia according to the WHO criteria. The lateral vertebral scanogram shows a vertebral compression fracture, probably of T11 vertebral bod y. RADIATION DOSE DELIVERED: Total DLP
== END 2021-10-14 03:06 ==
PROVIDERS: PCP Family Medicine; Visit Provider Family Medicine
DX: M85.88 Other specified disorders of bone density and structure, other site (principal); M48.54XD Collapsed vertebra, not elsewhere classified, thoracic region, subsequent encounter for fracture with routine healing
CPT/HCPCS: 77080

== ENCOUNTER 2021-10-14 03:52 | Outpatient (CLI) | payer OTHER, BC, SELFPAY ==
[2021-10-14 16:07] LABS: Hemoglobin A1C 5.7 % (<5.7)
[2021-10-14 16:59] LABS: ALT 137 U/L (14-59); AST 71 U/L (15-37); Albumin 4.1 g/dL (3.4-5.0); Alkaline Phosphatase 93 U/L (46-116); Anion Gap 9.8 mmol/L (3-11); BUN 11 mg/dL (7-18); Bilirubin, Total 0.6 mg/dL (0.2-1.0); CO2 28.2 mmol/L (21.0-32.0); CREATININE 0.8 mg/dL (0.55-1.02); Chloride 104 mmol/L (98-107); Glucose 119 mg/dL (74-106); Potassium 3.9 mmol/L (3.5-5.1); Sodium 142 mmol/L (136-145); TSH (W/Ref FT4) 9.06 uIU/mL (0.36-3.74); Total Protein 7.2 g/dL (6.4-8.2)
[2021-10-14 17:17] LABS: FREE T4 0.92 ng/dL (0.76-1.46)
== END 2021-10-14 03:53 | disposition home or self-care (01) ==
LOC: LBO 03:52
PROVIDERS: PCP Family Medicine; Visit Provider Family Medicine
DX: Z00.00 Encounter for general adult medical examination without abnormal findings (principal); E03.9 Hypothyroidism, unspecified; K76.0 Fatty (change of) liver, not elsewhere classified; E66.9 Obesity, unspecified; R73.09 Other abnormal glucose
CPT/HCPCS: 36415; 80053; 83036; 84439; 84443

== ENCOUNTER 2021-10-27 04:45 | Outpatient (CLI) | payer OTHER, BC, SELFPAY ==
--- NOTE | 2021-10-27 11:00 | NS.NUTBLAN_ITS ---
Lucy returns for weight loss counseling. She reports having foot surgery in last month and been on Abx. She has been unable to start exercise or change diet due to unexpected side effects from foot surgery. Wt: 257 lbs. No change since last visit. Session today focused on answering questions about how to best lose weight. She is not interested in weight loss surgery at this time. She is interested in starting to track her nutrients and start walking daily for 30 minutes. Her routine is very busy. Gets up around 230 am. Works at [employer] from 3 am-noon. 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 Generally eats dinner by 5 pm and sleeps from 8p-2:30 am. We discussed role of sleep for weight loss and importance of getting at least 7-8 hours sleep per night. Encouraged her to start tracking her intake on an jc and aiming for [id number] kcal, 70-80 g protein, up to 80 g carbs- spread out over waking hours. Goal is for 5 lbs weight loss per month. Follow up appt. scheduled for 12/01/21 at 11 am.
== END 2021-10-27 04:46 | disposition home or self-care (01) ==
LOC: DS 04:45
PROVIDERS: PCP Family Medicine; Visit Provider Dietitian, Registered
DX: E66.8 Other obesity (principal); Z71.3 Dietary counseling and surveillance
CPT/HCPCS: 97803

== ENCOUNTER 2021-11-24 03:01 | Outpatient (CLI) | payer OTHER, BC, SELFPAY ==
--- NOTE | 2021-11-24 07:45 | DI.MAMMO_ITS ---
Exam(s) MAMMO SCREENING EXAM: MAMMO SCREENING CLINICAL HISTORY: screening,z12.39. TECHNIQUE: Bilateral full field digital CC and MLO mammographic images were obtained with 3D tomosyn thesis and utilizing computer aided detection (CAD). COMPARISON: Prior mammograms were reviewed, the most recent being August 2020. FINDINGS: There are no CAD designations. There are no new spiculated masses nor malignant appearing microcalcification groups. There is no significant architectural distortion nor skin thickening-retraction. IMPRESSION: No radiographic evidence of malignancy. BI-RADS Category 1 - Negative Breast Density - Category A - Almost entirely fatty Breast density Category C or D implies that the patient has dense breast tissue. Dense breast tissue can make it harder to find cancer on a mammogram. Dense breast tissue is also associated with an incr eased risk of breast cancer. This information about the result of the mammogram report was provided to the patient to raise their awareness. Use this report when you speak with the patient about their risks for breast cancer, which includes their family history. At that time, you may recommend additional screening tests (Ultrasoun d or MRI) as these tests may add significant information. A negative radiographic report should not delay biopsy if a dominant or clinically suspicious mass is present. Up to ten percent of cancers are not identified on mammography. A negative report may reinforce clinical impression. Adenosis and dense breasts may obscure an underlying neoplasm. False positive reports average 6 to 10%. Patient will receive a letter notifying them of these results.
== END 2021-11-24 10:02 | disposition home or self-care (01) ==
LOC: DI 05:04 → OBS 10:00
PROVIDERS: PCP Family Medicine; Visit Provider Family Medicine
DX: Z12.31 Encounter for screening mammogram for malignant neoplasm of breast
CPT/HCPCS: 77063; 77067

== ENCOUNTER 2021-12-01 03:04 | Outpatient (CLI) | payer OTHER, BC, SELFPAY | END 2021-12-01 03:05 | disposition home or self-care (01) | PROVIDERS: PCP Family Medicine; Visit Provider Dietitian, Registered ==

== ENCOUNTER 2021-12-15 05:32 | Outpatient (CLI) | payer OTHER, BC, SELFPAY ==
--- NOTE | 2021-12-15 10:00 | NS.NUTBLAN_ITS ---
Lucy returns for weight management education. Wt: 253 lbs, down 4 lbs since 10/27/21. Lucy continues with rigorous schedule and has 1 year until she can retire from [employer]. She has 3 weeks vacation in coming weeks, however, is remodeling her house and putting on addition. Diet Recall: atkins bar, salad with 4 oz protein, small serving starch at dinner with protein/non starchy vegetables. No food after 630 pm. No routine exercise but is walking daily with her neighbor during vacation. Lucy has been able to lose 4 lbs by adding more calories into her day and eating less at night. She continues to be sleep deprived. Session today focused on ways to incorporate more sleep, exercise and balanced meals. We also discussed how some medications such as semaglutide may be beneficial for her and may help with weight loss. Encouraged Lucy to talk to her PCP. WIll follow up every 8 weeks. Goal is for 1-2 lbs weight loss per week. Goal weight: < 200 lbs. Follow up planned 02/16/22 at 11 am.
== END 2021-12-15 05:33 | disposition home or self-care (01) ==
LOC: DS 05:32
PROVIDERS: PCP Family Medicine; Visit Provider Dietitian, Registered
DX: E66.8 Other obesity (principal); Z71.3 Dietary counseling and surveillance
CPT/HCPCS: 97803

== ENCOUNTER 2021-12-24 11:49 | Outpatient (CLI) | payer OTHER, BC, SELFPAY ==
--- NOTE | 2021-12-24 06:00 | DI.RAD_ITS ---
Exam(s) XR PAIN CLINIC CERVICAL SP 2V EXAM: XR PAIN CLINIC CERVICAL SP 2V CLINICAL HISTORY: cervical spondylosis. TECHNIQUE: Fluoroscopy was provided for the referring physician for guidance with performing pain cl inic injection procedure. COMPARISON: No exams were available for comparison FINDINGS: Please see procedure note for details. Fluoro time: 59.8 seconds RADIATION DOSE DELIVERED: diaz Barrett=6.92 mGy
[2021-12-24 12:13] VITALS: BP 126/86; PULSE 86; RESP 20; TEMP 36.6; O2SAT 96
--- NOTE | 2021-12-24 12:55 | PDOC.PAIN_ITS ---
Pain Clinic Procedure Note Procedure Note Procedure Note: CERVICAL MEDIAL BRANCH BLOCKS Lucy De Jesus has been referred to the [facility] for cervical medial branch blocks. COMMENTS: She was previously evaluated in the clinic. Pre-procedure pain VAS was 8/10. Dx: Cervical spondylosis without myelopathy Patient was interviewed and the medical record reviewed. There were no medical, pharmacologic, radiographic or other structural contraindications to attempting fluoroscopically guided local anesthetic cervical medial branch blocks. Risks and expected side effects as well as potential benefit of the procedure were reviewed and voiced concerns addressed. The printed consent form was signed and witnessed. Standard time-out procedure was performed. Patient was placed in the left lateral decubitus position on the fluoroscopy table and automated blood pressure cuff and pulse oximeter applied. The skin entry points for approaching the anatomic target points of the segmental medial branches of The right C2-C5 area was identified with fluoroscopy and marked. Following thorough Chlorhexadine preparation of the skin and draping of the skin entry points, a 25 gauge 1.5 spinal needle was placed under fluoroscopic guidance down on to the target point for each respective segmental medial branch. Position was confirmed in A/P and leteral views with 0.25ml of omnipaque 240 injected at each level. This revealed appropriate spread and no vascular uptake. At each point 0.3ml 0.5% bupivicaine was injected. The needles were removed without difficulty. Vital signs were stable throughout the procedure and were as recorded in the docflowsheet by the nursing staff. Follow up plans and appointments were discussed and patient was instructed to keep careful note of how the usual pain was modified by these injections. Speci fically, the patient was asked to keep a pain diary for the next 4 hours using a numeric pain scale of 0-10 and report these results at the follow-up visit. Post procedure instruction was given as documented in the nursing documentation and having met discharge criteria, and was discharged from the Pain Management Center. Based on the medial branches blocked today, if they patient has adequate relief and we are able to proceed to radiofrequency ablation, the treatment should result in the denervation of the right C2-C3, C3-C4, and C4=C5. We would expect to denervate a total of 3 facets during the radiofrequency ablation. COMMENTS: Post-procedure pain VAS was 0/10. Joel Murray DO, MPH [facility]-Pain Management [facility] CC: Joan Moya
[2021-12-24] MEDS: Omnipaque 240 MG/ML 50 ML BTL IJ (13:08)
[2021-12-24] MEDS: Bupivacaine 0.5% Pres-Free 10 ML VIAL IJ (13:09)
[2021-12-24 13:13] VITALS: BP 123/80; PULSE 98; RESP 22; O2SAT 99
== END 2021-12-24 11:50 | disposition home or self-care (01) ==
LOC: PC 11:50
PROVIDERS: PCP Family Medicine; Visit Provider Preventive Medicine Occupational Medicine
DX: M47.812 Spondylosis without myelopathy or radiculopathy, cervical region (principal)
CPT/HCPCS: 64490; 64491; 64492; 72040; Q9967

== ENCOUNTER 2022-01-22 09:18 | Outpatient (CLI) | payer OTHER, BC, SELFPAY ==
--- NOTE | 2022-01-22 06:00 | DI.RAD_ITS ---
Exam(s) XR PAIN CLINIC CERVICAL SP 2V EXAM: XR PAIN CLINIC CERVICAL SP 2V CLINICAL HISTORY: Dx: Cervical Spondylosis TECHNIQUE: 2D and realtime digital imaging was performed. Radiologist not present. CONTRAST MATERIAL: None. COMPARISON: No exams were available for comparison FINDINGS: Fluoroscopy was provided for pain management therapy. Please refer to procedure report or details. Total fluoroscopy time 56.5 seconds Cumulative dose: Ka,r=9.35 mGy IMPRESSION: RADIATION DOSE DELIVERED:
[2022-01-22 09:27] VITALS: BP 139/81; PULSE 72; RESP 20; TEMP 36.6; O2SAT 95
[2022-01-22 10:04] VITALS: BP 114/61; PULSE 93; RESP 19; O2SAT 98
[2022-01-22] MEDS: Lidocaine 2% Pres-Free 2 ML VIAL (10:21)
[2022-01-22] MEDS: Omnipaque 240 MG/ML 50 ML BTL IJ (10:21)
--- NOTE | 2022-01-22 10:22 | PDOC.PAIN_ITS ---
Pain Clinic Procedure Note Procedure Note Procedure Note: CERVICAL MEDIAL BRANCH BLOCKS #2 Lucy De Jesus has been referred to the Pain Management Center for cervical medial branch blocks. COMMENTS: She did well with CMBB #1 Dx: Cervical spondylosis without myelopathy Pre-procedure pain VAS = 8/10. Liza was interviewed and the medical record reviewed. There were no medical, pharmacologic, radiographic or other structural contraindications to attempting fluoroscopically guided local anesthetic cervical medial branch blocks. Risks and expected side effects as well as potential benefit of the procedure were reviewed with Liza, and Liza's voiced concerns addressed. The printed consent form was signed and witnessed. Standard time-out procedure was performed. Lizawas placed in the Left lateral decubitus position on the fluoroscopy table and automated blood pressure cuff and pulse oximeter applied. The skin entry points for approaching the anatomic target points of the segmental medial branches of Right C2-C5 were identified with fluoroscopy and marked. Following thorough Chlorhexadine preparation of the skin and draping and 1% lidocaine infiltration of the skin entry points and subcutaneous tissues, a 25 gauge spinal needle was placed under fluoroscopic guidance down on to the target point for each respective segmental medial branch. Position was confirmed in A/P and leteral views with 0.25ml of omnipaque 240 injected at each level. At this point 0.3ml of 2% Lidocaine was injected at each medial branch. Geovanna vital signs were stable throughout the procedure and were as recorded in the docflowsheet by the nursing staff. Follow up plans and appointments were discussed with Liza. Liza was instructed to keep careful note of how the usual pain was modified by these injections. Specifically, the patient was asked to keep a pain diary for the next 24 hours using a numeric pain scale of 0-10 and report these results at the follow-up visit. Post procedure instruction was given as documented in the nursing documentation and having met discharge criteria, Geovanna was discharged from the Pain Management Center. Based on the medial branches blocked today, if they patient has adequate relief and we are able to proceed to radiofrequency ablation, the treatment should result in the denervation of the right C2-C3, C3-C4, and C4-C5 FACET JOINTS. We would expect to denervate a total of 3 facets during the radiofrequency ablation. COMMENTS: Post-procedure pain VAS was 4/10. She will call back with her 1-4 hour post-procedure pain VAS levels. Joel Murray DO, MPH [facility]-Pain Management [facility] CC: Joan Moya
== END 2022-01-22 09:19 | disposition home or self-care (01) ==
LOC: PC 09:18
PROVIDERS: PCP Family Medicine; Visit Provider Preventive Medicine Occupational Medicine
DX: M47.812 Spondylosis without myelopathy or radiculopathy, cervical region (principal)
CPT/HCPCS: 64490; 64491; 64492; 72040; Q9967

== ENCOUNTER 2022-02-16 04:02 | Outpatient (CLI) | payer OTHER, BC, SELFPAY ==
--- NOTE | 2022-02-16 11:00 | NS.NUTBLAN_ITS ---
Liss returns for weight management education. 252 lbs, 5'8 BMI 39. Has lost 4 lbs in last 4 weeks. Started ozempic about 2 weeks ago. c/o some nausea on first day of injection. No routine exercise. 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 Sleeps about 5 hours per night. Diet Recall: granola bar, salad with cheese, another salad at dinner. Liss reports that she feels much miranda faster on new medication for weight loss and she has less appetite. Reviewed importance of meeting macronutrient needs for optimal weight loss and health. Encouraged her to log meals and monitor intake of protein, carbs and fats. Recommend at least 3 meals per day. Liss also has referral to Weight Clinic at [facility]. Liss has been able to lose some weight with ozempic. Will continue to support during weight loss journey. Follow up planned 04/20/22 at 11 am.
== END 2022-02-16 04:03 | disposition home or self-care (01) ==
LOC: DS 04:02
PROVIDERS: PCP Family Medicine; Visit Provider Dietitian, Registered
DX: E66.8 Other obesity (principal); Z68.39 Body mass index [BMI] 39.0-39.9, adult; Z71.3 Dietary counseling and surveillance
CPT/HCPCS: 97803

== ENCOUNTER 2022-03-11 12:04 | Outpatient (CLI) | payer OTHER, BC, SELFPAY ==
[2022-03-11 12:18] VITALS: BP 134/75; PULSE 72; RESP 20; TEMP 37.2; O2SAT 97
[2022-03-11] MEDS: fentaNYL 100 MCG/2 ML VIAL IVP (12:58)
[2022-03-11] MEDS: Midazolam 2 MG/2 ML VIAL IVP (12:58)
--- NOTE | 2022-03-11 13:23 | PDOC.PAIN_ITS ---
Pain Clinic Procedure Note Procedure Note Procedure Note: Cervical Radiofrequency with Coolief Machine PROCEDURE NOTE Date of Service: March 11, 2022 Patient: Lucy De Jesus Provider: Joel Murray DO, MPH Pre Operative Diagnosis: Cervical Spondylosis without Myelopathy Post Operative Diagnosis: Same Pre-procedure pain: VAS 6/10 CMBBs with excellent relief on 01/22/22 and 12/24/21 PROCEDURE: 1. Left/Right C2-C3 facet joint (TON) radiofrequency denervation 2. Left/Right C3-C4 facet joint radiofrequency denervation 3. Left/Right C4-C5 facet joint radiofrequency denervation Lucy De Jesus was brought to the operating room and placed on the exam table in a comfortable lateral recumbant position. The place for the needle placement was obtained by manual palpation as well as radiographic confirmation. The sterile field was prepped by chlorhexidine and sterile drapes. Local anesthesia, both superficial and deep was provided by local infiltration of 3 ml Lidocaine 1%. Using fluoroscopic guidance, A 17g 50 mm radiofrequency introducer needle with a 2 mm active tip was placed overlying the right C2 cervical vertebra from the lateral approach and was advanced until bony contact was felt with the articular pillar. Attempted aspiration revealed no blood or cerebrospinal fluid. Motor testing was then performed with 2.0 volts and no upper extremity motor stimulation was observed. 1 ml of 2% Lidocaine was injected through the RF needle. A radiofrequency lesion of the right medial branch (TON) of C2 was then performed at 80 degrees Celsius for 2 minutes and 30 seconds. The same procedure was repeated for right C3, C4 and C5 medial branches. After each procedure 1/4 cc of Dexamethasone (10 mg/cc) was injected at each site. After this, 1/2 cc of Ropivacaine (0.5%) was injected after negative aspiration. Follow up plans and appointments were discussed with the Lucy . Post pro cedure instruction was given as documented in nursing documentation and having met discharge criteria, Lucy was discharged from the Pain Management Center. COMMENTS: No apparent complications. Post-procedure pain: VAS= 0/10. I personally performed this entire procedure. Joel Murray DO, MPH [facility]-Pain Management [facility]
--- NOTE | 2022-03-11 13:25 | DI.RAD_ITS ---
Exam(s) XR PAIN CLINIC CERVICAL SP 2V EXAM: XR PAIN CLINIC CERVICAL SP 2V CLINICAL HISTORY: Dx: Cervical Spondylosis. TECHNIQUE: Fluoroscopy was provided for the referring physician for guidance with performing pain cl inic injection procedure. COMPARISON: No exams were available for comparison FINDINGS: Please see procedure note for details. Fluoro time: 54.6 seconds RADIATION DOSE DELIVERED: Kar=5.8 mGy
[2022-03-11] MEDS: Lactated Ringers 500 ML 80 ML IV (13:35)
[2022-03-11] MEDS: Lidocaine 2% Pres-Free 5 ML VIAL IJ (13:43)
[2022-03-11] MEDS: Dexamethasone Sod. Phos./Pres-Free 10 MG/ML VIAL IJ (13:44)
== END 2022-03-11 12:05 | disposition home or self-care (01) ==
LOC: PC 12:04
PROVIDERS: PCP Family Medicine; Visit Provider Preventive Medicine Occupational Medicine
DX: M47.812 Spondylosis without myelopathy or radiculopathy, cervical region (principal)
CPT/HCPCS: 64633; 64634; 72040; J2250; J3010

== ENCOUNTER 2022-05-11 08:07 | Day surgery (SDC) | payer OTHER, BC, SELFPAY ==
[2022-05-11 08:15] VITALS: BP 128/71; PULSE 72; RESP 18; TEMP 36.7; O2SAT 97
[2022-05-11] MEDS: Tropicam./Phenyleph. (1/2.5%) 5 ML BTL OD ×3 (08:37→08:45)
--- NOTE | 2022-05-11 09:28 | ANES.PREOP_ITS ---
General Info Date of Service Date Performed: 05/11/22 Height: 5 ft 8 in Weight: 109 kg Body Mass Index (BMI): 36.5 Surgical Procedure: Operation Date: 05/11/22 09:55 Proposed Procedure Side Surgeon p Cataract Extraction with IOL Implant Right Ruddy Dodson MD Meds Allergies and Home Medications Allergies Allergy/AdvReac Type Severity Reaction Status Date / Time No Known Allergies Allergy Verified 05/11/22 08:31 Home Medication Medication Instructions Recorded levothyroxine 88 mcg tablet 88 mcg PO DAILY #90 tabs 12/22/21 omeprazole 20 mg capsule,delayed 20 mg PO DAILY #90 caps 12/22/21 release cyclobenzaprine 10 mg tablet 10 mg PO HS PRN muscle spasm #30 12/23/21 tabs semaglutide 1 mg/dose (4 mg/3 mL) 2 mg (1.5 mL) subcut QWEEK #6 mL 04/22/22 subcutaneous pen injector Current Visit Medications: Current Medications Generic Name Dose Route Start Last Admin Trade Name Freq PRN Reason Stop Dose Admin Acetaminophen 1,000 mg 05/11/22 06:00 Acetaminophen 500 Mg Tab PO Q4H PRN PRN Miscellaneous Medication 0 ml 05/11/22 06:00 Prednisolone 1%, Moxifloxacin 0.5%, Nepafenac 0.1% 5ml Btl OD DIRECTED [facility] Miscellaneous Medication 0 ml 05/11/22 06:00 05/11/22 08:45 Tropicam./Phenyleph. (1/2.5%) 5 Ml Btl OD 1 drp DIRECTED RAJEEV Administration Tetracaine HCl 0 ml 05/11/22 06:00 Tetracaine 0.5% 4 Ml Btl OD DIRECTED [facility] PFSH Active Problems Active Problems: Problem Status Onset Code Smoker F17.200 Obstructive sleep apnea syndrome 02/28/18 G47.33 Non-alcoholic fatty liver disease K76.0 Hypothyroidism 02/28/18 E03.9 Hypercholesterolemia 05/27/09 E78.00 Gastroesophageal reflux disease with esophagitis 01/20/01 K21.0 Myelopathy concurrent with and due to spinal stenosis of cervical region M48.02, G99.2 Mucoid cyst of joint M67.40 Osteopenia of lumbar spine M85.88 Irritable bowel syndrome K58.9 Obesity with serious comorbidity E66.9 Cervical spondylosis without myelopathy M47.812 Meralgia paresthetica of both lower extremities G57.13 Medical History Medical History Chronic pain of left knee s/p injection with improvement DDD (degenerative disc disease), cervical DJD (degenerative joint disease) of cervical spine Fibrocystic disease of breast (01/04/12) Surgical History Surgical History H/O toe surgery Dr. Vick; mucoid cyst of toe S/P carpal tunnel release S/P hemorrhoidectomy (~2011) S/P hysterectomy with oophorectomy (~2000) S/P shoulder surgery Tobacco Smoking/Tobacco Use Status: Former Tobacco Use Passive smoking exposure: Yes Second hand exposure: Yes Alcohol Alcohol Intake: current Alcohol intake frequency: a few times a week Substance Use Substance use: Never Substance use type: does not use Prental History History 2 Para 1 Hx # Term Pregnancies Multiple births Hx # Pregnancies Ectopic pregnancies AB induced Hx Number of Living Children AB spontaneous Vital Signs and Lab Results Vital Signs Most Recent Vital Signs in EMR: Most Recent Vital Signs Temp Pulse Resp BP Pulse Ox 36.7 C 72 18 128/71 97 05/11/22 08:15 05/11/22 08:15 05/11/22 08:15 05/11/22 08:15 05/11/22 08:15 Lab Results Blood Type / Crossmatch: No Data to Display Complete Blood Count: No Data to Display Complete Metabolic Panel: No Data to Display Liver Function Panel: No Data to Display Coagulation Panel: No Data to Display Cardiac Panel: No Data to Display Arterial Blood Gas: No Data to Display Venous Blood Gas: No Data to Display Pancreas Panel: No Data to Display Thyroid Panel: No Data to Display Infectious Disease: No Data to Display Blood Cultures: No Data to Display Toxicology Panel: No Data to Display Anesthesia Assessment and Plan Anesthesia History Personal History: No History of Anesthesia Complications Family History: No Family History of Anesthesia Complications Exercise Tolerance Exercise Tolerance: Metabolic Equivalents>4 Pertinent Negatives Pertinent Negatives: No Symptoms of GERD, No Major Cardiovascular Symptoms or Complaints and No Major Pulmonary Symptoms or Complaints Cardiac & Pulmonary Exam Cardiac Exam: Normal S1/S2 Heart Sounds Pulmonary Exam: Clear Bilateral Breath Sounds Implantable Cardiac Device Does patient have a Pacemaker or an ICD?: No Airway Exam Known Difficult Airway: No Mallampati Class: 2 Mouth Opening: Normal (> 3cm) Thyromental Distance: Greater than 3 cm Neck Range of Motion: Full ROM Neck Circumference: Thick Teeth Condition: Normal Dentition ASA Classification ASA Score: ASA 2 Emergency Case?: No NPO Status NPO Status: NPO Clears >2 hours, Solids >8 hours Anesthesia Plan Resuscitation Status: Full Code Anesthesia Technique: MAC Anesthesia Airway Planned: Natural Airway Monitors Used: Standard Monitors
[2022-05-11 09:42] VITALS: BMI 36.5
[2022-05-11] MEDS: Tetracaine 0.5% 4 ML BTL OD (10:08)
[2022-05-11] MEDS: Lidocaine 1% Pres-Free 5 ML VIAL (10:09)
[2022-05-11] MEDS: Balanced Salt Soln.-PLUS 500 ML BAG (10:11)
[2022-05-11] MEDS: Duovisc Viscoelastic System EACH 1 EACH (10:12)
[2022-05-11] MEDS: Lidocaine 2% Jelly 6 ML SYR (10:12)
[2022-05-11] MEDS: Povidone-Iodine Ophth 30 ML BTL (10:13)
[2022-05-11 10:19] VITALS: BP 122/69; PULSE 72; RESP 16; TEMP 36.1; O2SAT 94
--- NOTE | 2022-05-11 10:20 | W.PM.DSUDISC ---
Discharge Plan Disposition Patient Disposition: HOME Condition: Good Discharge Details Attending Provider: Ruddy Dodson Primary Care Provider: Joan Moya Home Meds and New Rx's Prescriptions: No Action semaglutide 1 mg/dose (4 mg/3 mL) pen injector 2 mg subcut QWEEK Qty: 6 3RF levothyroxine 88 mcg tablet 88 mcg PO DAILY Qty: 90 4RF omeprazole 20 mg capsule,delayed release(DR/EC) 20 mg PO DAILY Qty: 90 6RF cyclobenzaprine 10 mg tablet 10 mg PO HS PRN (Reason: muscle spasm) Qty: 30 3RF Discharge Instructions Stand Alone Forms: Post-op Topical Cataract, Grzegorz Estrada (DSU) Discharge Orders Discharge Orders: Discharge Order (Routine); Ordered 05/11/22 Ordered By: Ruddy Dodson DS: Diagnosis Discharge Diagnosis (1) Nuclear sclerotic cataract of right eye: Status: Resolved (2) Posterior subcapsular age-related cataract, right eye: Status: Resolved
--- NOTE | 2022-05-11 10:21 | ROE_ITS ---
Date of service: 05/11/22 Time of Service: 10:21 Operative Note Operative Note DATE OF PROCEDURE: 05/11/22 PRE-OP DIAGNOSIS: Nuclear/posterior subcapsular cataract, right eye POST-OP DIAGNOSIS: same PROCEDURE: Cataract extraction using phacoemulsification with intraocular lens implant, right eye SURGEON: Ruddy Dodson ANESTHESIA TYPE: Local By Surgeon and MAC Refer to Anesthesia Record ESTIMATED BLOOD LOSS: 0 PATHOLOGY: none sent COMPLICATIONS: None Patient was transported to: same day Patient's condition: stable Implants: Juan Daniel & Juan Daniel/ESTHER Tecnis [id number] Indications: Progressive visual loss due to cataract, right eye Procedure Description: CATARACT SURGERY OPERATIVE REPORT PREOPERATIVE DIAGNOSIS: 1. Nuclear/posterior subcapsular cataract, right eye POSTOPERATIVE DIAGNOSIS: Same OPERATION: 1. Cataract extraction using phacoemulsification with posterior chamber intraocular lens implant, right eye. IOL: IOL Form Tamper/Model: Juan Daniel & Juan Daniel / ESTHER Tecnis [id number] IOL Power: + 21.0 diopters IOL Serial Number: [id number] Optic Diameter: 6.0mm Haptic/Overall Diameter: 13.0mm PHACO INFO: Radames Utkarsh [employer]urion Vision System with OZil and Active Fluidics Cumulative Dispersed Energy (CDE): 5.73 seconds SURGEON: Ruddy Dodson MD, AYDE ANESTHESIA: Monitored Anesthesia Care (MAC), with local sub-tenon's anesthetic infiltration COMPLICATIONS: None SPECIMENS: None INDICATIONS FOR PROCEDURE: The patient is a 61-year-old lady with history of diminished visual acuity in her right eyes secondary to the development of nuclear/posterior subcapsular cataract. She is significantly symptomatic that she desires cataract surgery a nd attempt to improve and maximize her vision. PROCEDURE: The correct surgical eye was identified and marked as the right eye and the pupil was dilated in the preoperative area using mydriatics and cycloplegics. The dilated pupil size was 8.0 mm. Oral sedation was administered in the form of an Imprimis MKO Melt (midazolam 3mg/ketamine 25mg/ondansetron 2mg). The patient was brought to the operating room where cardiopulmonary monitoring was instituted and surgical time-out was performed, confirming the correct operative eye and IOL power. Topical anesthesia was administered and ophthalmic povidone-iodine 5% was instilled into the conjunctival fornices. Lidocaine gel was applied to the cornea and the jazzy-ocular area was prepped with Betadine 10% solution and dr aped in the usual sterile fashion for intraocular surgery, including an aperture drape. A Tegaderm transparent film dressing was cut in half and used to cover the lashes and lid margins. Care was taken to sequester the lashes and lid margins under the Tegaderm dressing. A lid speculum was placed between the lids of the operative eye and the Radames LuxOR Revalia operating microscope was maneuvered into position. Sherri scissors were then used to make a conjunctival buttonhole approximately 6mm posterior to the limbus in the inferonasal quadrant. Blunt dissection was carried out to expose bare sclera, and a blunt-tipped sub-tenon?s anesthesia cannula was introduced and passed posteriorly along the globe where non- preserved plain lidocaine was injected into posterior sub-Tenon?s space. A sideport knife was used to make a paracentesis port inferotemporally. Intraocular phenylephrine/lidocaine was injected into the anterior chamber. The anterior chamber was filled with viscoelastic. A keratome knife was used to construct a 2-plane near-clear corneal tunnel extending 2.0mm into clear cornea superiortemporally. A flap was raised on the anterior capsule and capsulorhexis forceps were used to complete a continuous curvilinear capsulorhexis of 5.5 mm. Balanced salt solution was then used to perform cortical cleaving hydrodissection and nuclear hydrodelineation until the lens could be freely rotated within the capsular bag. The lens nucleus was then disassembled and removed within the capsular bag and iris plane using phacoemulsification. Residual cortical material was removed using the I/A handpiece. The posterior capsule was carefully polished to remove as much residual lens epithelial cells as safely possible. The capsular bag was then inflated and the anterior chamber deepened with viscoelastic. The lens implant described above was inserted into the capsular bag using the ESTHER [place] Injector. A Kuglen hook was used to dial the IOL into position. Residual viscoelastic was then removed first from posterior to the IOL, then from the anterior chamber using the I/A handpiece. The lens implant was noted to center nicely within the capsular bag. The incisions were stromally hydrated, and the anterior chamber was reformed using BSS. Then 0.5cc of moxifloxacin 1.0mg/ml were injected into the capsular bag and anterior chamber. The incisions were checked with a Weck spear and found to be secure. Several drops of ophthalmic povidone-iodine 5% were then applied to the eye followed by two drops of Imprimis combination prednisolone/moxifloxacin/nepafenac solution. The drapes were removed and a clear plastic protective eye shield was placed over the eye. The patient was then returned to Same Day Surgery in stable condition.
--- NOTE | 2022-05-11 10:44 | W.ANESPOSTOP ---
Postoperative Evaluation Date, Time and Location Date Performed: 05/11/22 Time Performed: 10:25 Patient Location: Day Surgery Unit Vital Signs Most Recent Imported Vital Signs: Most Recent Vital Signs Temp Pulse Resp BP Pulse Ox 36.1 C L 72 16 122/69 94 05/11/22 10:19 05/11/22 10:19 05/11/22 10:19 05/11/22 10:19 05/11/22 10:19 Pain Score Most Recent Pain Score: Most Recent Pain Score Pain Level 0 05/11/22 10:19 Assessment Mental Status: Awake (Alert & Oriented to Patient Baseline) Airway and Respiratory Function: Patent airway with normal (patient baseline) respiratory exam Cardiovascular Function: Hemodynamically Stable Hydration Status: Adequately Hydrated Nausea & Vomiting: No Nausea or Vomiting Pain: Pt. Denies Any Pain Peripheral Nerve Block: Patient did not receive a nerve block
[2022-05-11 10:49] VITALS: BP 114/67; PULSE 76; RESP 16; TEMP 36.7; O2SAT 96
== END 2022-05-11 10:57 | disposition home or self-care (01) ==
LOC: SUR 08:07
PROVIDERS: PCP Family Medicine; Visit Provider Ophthalmology
PROC: (CPT 66984; principal; 2022-05-11 09:45)
DX: H25.041 Posterior subcapsular polar age-related cataract, right eye (principal); G47.33 Obstructive sleep apnea (adult) (pediatric); E03.9 Hypothyroidism, unspecified
CPT/HCPCS: 66984; V2632

== ENCOUNTER 2022-07-09 03:31 | Outpatient (CLI) | payer OTHER, SELFPAY ==
[2022-07-09 13:07] LABS: ALT 59 U/L (14-59); AST 44 U/L (15-37); Alkaline Phosphatase 83 U/L (46-116); Anion Gap 7.2 mmol/L (3-11); BUN 13 mg/dL (7-18); Bilirubin, Total 0.8 mg/dL (0.2-1.0); CO2 27.8 mmol/L (21.0-32.0); CREATININE 0.8 mg/dL (0.55-1.02); Calcium 8.8 mg/dL (8.5-10.1); Calculated LDL 132 mg/dL (<100); Chloride 103 mmol/L (98-107); Cholesterol 199 mg/dL (<200); Glucose 111 mg/dL (74-106); HDL Cholesterol 55 mg/dL (40-60); Potassium 4.4 mmol/L (3.5-5.1); Sodium 138 mmol/L (136-145); TSH (W/Ref FT4) 17.08 uIU/mL (0.36-3.74); Total Protein 7.5 g/dL (6.4-8.2); Triglyceride 64 mg/dL (<150)
[2022-07-09 13:33] LABS: FREE T4 0.67 ng/dL (0.76-1.46)
== END 2022-07-09 03:32 | disposition home or self-care (01) ==
LOC: LOS 03:31
PROVIDERS: PCP Family Medicine; Visit Provider Family Medicine
DX: E03.9 Hypothyroidism, unspecified (principal); K76.0 Fatty (change of) liver, not elsewhere classified; Z00.00 Encounter for general adult medical examination without abnormal findings; E78.00 Pure hypercholesterolemia, unspecified
CPT/HCPCS: 36415; 80053; 80061; 84439; 84443

== ENCOUNTER 2022-10-13 09:24 | Outpatient (CLI) | payer OTHER, BC, SELFPAY ==
--- NOTE | 2022-10-13 08:45 | DI.RAD_ITS ---
Exam(s) XR HAND LT COMPLETE XR WRIST LT COMPLETE EXAM: XR HAND LT COMPLETE and XR wrist LT complete CLINICAL HISTORY: increasing pain. TECHNIQUE: 2D digital imaging was performed of the left hand. Six views were obtained. AP, lateral and oblique views were obtained. COMPARISON: None. FINDINGS: BONES: No acute fracture is present. No bony destructive lesion is seen. JOINTS: No dislocation present. Moderately severe degenerative changes are seen at the 1st CMC joint with joint space narrowing, subchondral sclerosis and bony hypertrophy. More mild degenerative toledo es are seen at the articulation of the scaphoid and the quadrangular bones. There are mild hypertrop hic changes and joint space narrowing at the interphalangeal joints of the fingers to varying degrees . SOFT TISSUE: Normal. IMPRESSION: 1. Degenerative changes of the hand and wrist. The findings are most marked at the 1st CMC joint. 2. No acute fracture or dislocation. DATA REPOSITORY: RADIATION DOSE DELIVERED:
--- NOTE | 2022-10-13 08:45 | DI.RAD_ITS ---
Exam(s) XR HAND RT COMPLETE XR WRIST RT COMPLETE EXAM: XR HAND RT COMPLETE and XR wrist RT complete CLINICAL HISTORY: increasing pain. TECHNIQUE: 2D digital imaging was performed of the right hand. Six images were obtained. AP, latera l and oblique views were obtained. COMPARISON: CR RIGHT WRIST COMPLETE from 09/05/2014 FINDINGS: BONES: No acute fracture is present. No bony destructive lesion is seen. JOINTS: No dislocation present. Moderate degenerative changes are seen at the 1st CMC joint with join t space narrowing and bony hypertrophy. There also mild hypertrophic changes and joint space narrowi ng of varying degrees at the interphalangeal joints of the fingers. SOFT TISSUE: Normal. IMPRESSION: 1. Degenerative changes of the hand and wrist. The findings are most marked at the 1st CMC joint. 2. No acute fracture or dislocation. DATA REPOSITORY: RADIATION DOSE DELIVERED:
== END 2022-10-13 09:44 ==
LOC: DI 09:44
PROVIDERS: PCP Family Medicine; Visit Provider Nurse Practitioner Family
DX: M19.031 Primary osteoarthritis, right wrist (principal); M19.032 Primary osteoarthritis, left wrist; M19.041 Primary osteoarthritis, right hand; M19.042 Primary osteoarthritis, left hand
CPT/HCPCS: 73110; 73130

== ENCOUNTER 2022-10-13 15:52 | Outpatient (REF) | payer OTHER, BC, SELFPAY ==
[2022-10-13 13:07] LABS: Hemoglobin A1C 5.4 % (<5.7)
[2022-10-13 13:14] LABS: TSH (W/Ref FT4) 3.45 uIU/mL (0.36-3.74)
== END 2022-10-13 15:53 | disposition home or self-care (01) ==
LOC: LBN 15:52
PROVIDERS: PCP Family Medicine; Visit Provider Nurse Practitioner Family
DX: R73.9 Hyperglycemia, unspecified (principal); E03.9 Hypothyroidism, unspecified
CPT/HCPCS: 83036; 84443

== ENCOUNTER 2022-11-20 01:13 | Outpatient (CLI) | payer OTHER, SELFPAY ==
--- NOTE | 2022-11-20 07:00 | DI.MRI_ITS ---
Exam(s) MR UPPER JOINT LT WO EXAM: MR UPPER JOINT LT WO CLINICAL HISTORY: Persistent lt wrist pain despite OT and Conservative rx,m25.532. TECHNIQUE: Multiplanar multisequence MRI was performed. COMPARISON: Plain films October 15 FINDINGS: BONES: No fracture or contusion. JOINTS: Degenerative changes 1st carpal metacarpal joint with joint space narrowing, spurring and sub chondral cyst formation. Degenerative changes scaphoid trapezium joint some high signal in the dista l pole of the scaphoid and small subchondral cysts well as joint space narrowing. High signal in tri quetrum may also be degenerative.. TENDONS: Abnormal thickening and intermediate signal seen within thin the extensor pollicis brevis and abducto r pollicis longus tendons. Some surrounding fluid and edema. Remaining tendons are unremarkable. MUSCLES: Unremarkable. MEDIAN NERVE: Unremarkable on this noncontrast examination. SOFT TISSUES: Edema lateral carpal region. LIGAMENTS: Unremarkable. TRIANGULAR FIBROCARTILAGE: Unremarkable. IMPRESSION: Tendinitis with surrounding soft tissue swelling and fluid involving the abductor pollicis longus and extensor pollicis brevis tendons. DATA REPOSITORY:
== END 2022-11-20 01:33 ==
LOC: DI 01:13
PROVIDERS: PCP Family Medicine; Visit Provider Nurse Practitioner Family
DX: M25.532 Pain in left wrist (principal); M18.12 Unilateral primary osteoarthritis of first carpometacarpal joint, left hand; M67.834 Other specified disorders of tendon, left wrist
CPT/HCPCS: 73221

== ENCOUNTER → 2023-05-10 03:11 | Outpatient (CLI) | payer OTHER, BC, SELFPAY ==
--- NOTE | 2023-05-10 08:30 | DI.RAD_ITS ---
Exam(s) XR KNEE RT 3V AP,LAT,SIMI EXAM: XR KNEE RT 3V AP,LAT,SIMI CLINICAL HISTORY: right knee pain, swelling,UNSTABLE,M25.361. TECHNIQUE: 2D digital imaging was performed of the right knee. Three views obtained. AP, lateral an d PA tunnel views were obtained. COMPARISON: No priors for comparison. FINDINGS: BONES: No acute fracture is present. No bony destructive lesion is seen. JOINTS: The knee is normally aligned. There is mild joint space narrowing and spurring in the lateral femoral tibial joint. There is a small joint effusion. SOFT TISSUE: Normal. IMPRESSION: Mild degenerative changes of the right knee and small joint effusion. DATA REPOSITORY: RADIATION DOSE DELIVERED:
--- NOTE | 2023-05-10 12:00 | DI.RAD_ITS ---
Exam(s) XR FOOT LT COMPLETE EXAM: XR FOOT LT COMPLETE CLINICAL HISTORY: Pain, M79.673, possible foreign body in L foot (plantar), M79.5. TECHNIQUE: 2D digital imaging was performed of the left foot. Three images were obtained. AP, obli que and lateral views were obtained. COMPARISON: No exams were available for comparison FINDINGS: BONES: No acute fracture is present. No bony destructive lesion is seen. There is a plantar calcaneal spur. JOINTS: No dislocation present. The joint spaces are well maintained. SOFT TISSUE: No radiopaque foreign body is seen in the soft tissues. IMPRESSION: No evidence of a radiopaque foreign body. DATA REPOSITORY: RADIATION DOSE DELIVERED:
== END ==
PROVIDERS: PCP Family Medicine; Visit Provider Nurse Practitioner Family
DX: M25.361 Other instability, right knee (principal); M79.5 Residual foreign body in soft tissue; M79.672 Pain in left foot; M17.11 Unilateral primary osteoarthritis, right knee
CPT/HCPCS: 73562; 73630

== ENCOUNTER → 2023-05-24 03:18 | Outpatient (CLI) | payer OTHER, BC, SELFPAY ==
--- NOTE | 2023-05-24 09:55 | DI.MRI_ITS ---
Exam(s) MR LOWER JOINT RT WO EXAM: MR LOWER JOINT RT WO CLINICAL HISTORY: Right knee instability.M25.361 TECHNIQUE: Multiplanar multisequence MRI of the knee was performed. COMPARISON: CR XR KNEE RT 3V AP,LAT,SIMI from 05/10/2023 FINDINGS: EFFUSION: There is a moderate size joint effusion. No Deras cyst in the popliteal fossa. There is s ubcutaneous edema anterior to the patella and patellar ligament. Also small amount of fluid in the p repatellar bursa region. MARROW:There is mild bone contusion signal in the lateral tibial plateau. No contusion signal abnorm ality in the medial tibial plateau nor in the fibular head and neck nor in the femoral condyles. PATELLOFEMORAL COMPARTMENT: The quadriceps tendon is intact. The patellar ligament is intact. There is full-thickness thinning of the retropatellar cartilage over both facets. There is focal sub articular edema but no osteochondral defects seen at this level. No intraosseous signal to suggest r ecent patellar dislocation.There are no patellar retinacular tears evident. CRUCIATE LIGAMENTS: The anterior cruciate ligament is intact.The posterior cruciate ligament is intac t. MEDIAL COMPARTMENT/MEDIAL MENISCUS: There are no tears of the medial meniscus evident.. There is only minimal cartilage loss over the main weight-bearing surface of the medial femoral condy le. No osteochondral defects. No osteophytes. MEDIAL COLLATERAL LIGAMENT: Intact. Some fluid signal is noted lateral to the posterior aspect of th e MCL and medial femoral condyle but not associated with tear at this level. LATERAL COMPARTMENT/LATERAL MENISCUS: Posterior horn of the lateral meniscus appears intact. There i s, however, some abnormal signal seen in the anterior horn, with subtle suggestion of anterior menisc al horn tearing. There is signal abnormality in the adjacent anterior intra-articular Hoffa fat pad. There is no prominent cartilage loss over the main weight-bearing surface of the lateral femoral cond yle. Small marginal osteophyte noted. ILIOTIBIAL BAND: Intact LATERAL COLLATERAL LIGAMENT COMPLEX: Biceps femora is tendon appears intact. There signal abnormalit y at the fibular attachment site of the fibular collateral ligament consistent with partial tearing a t this level. The posterior aspect of the fibular collateral ligament attachment site appears intact . There is signal abnormality consistent with intrasubstance injury within the popliteus muscle comp onent of the LCL complex. However, the popliteus tendon appears intact. IMPRESSION: 1. Predominately lateral findings with signal abnormality consistent with some tearing in the anterio r horn of the lateral meniscus (posterior horn of lateral meniscus appears intact. Mild bone contusi on signal in the lateral tibial plateau. 2. There is signal abnormality in the inferior aspect of the fibular collateral ligament on the anter ior aspect of its attachment site to the fibular styloid. However, there is no complete tear of this structure and the attachment of the biceps femora is component of the LCL complex appears intact. T here is, however, significant signal abnormality in the popliteus muscle component of the LCL complex . However, the popliteus tendon appears intact. 3. No significant medial compartment findings although there does appear to be small amount of fluid external to the most posterior extension of the MCL but no evidence of MCL tear. 4. There is advanced retropatellar cartilage loss over both the medial and lateral facets. There is some focal subarticular edema in the posterior patella at this level at the mid facet level. There a re no patellar retinacular tears. There is subcutaneous edema and fluid anterior to the lower half t he patella and patellar ligament. There is no tear of the patellar ligament. No evidence of patella r fracture 5. Moderate size joint effusion. No Deras cyst. DATA REPOSITORY:
== END ==
PROVIDERS: PCP Family Medicine; Visit Provider Nurse Practitioner Family
DX: M23.242 Derangement of anterior horn of lateral meniscus due to old tear or injury, left knee (principal); M24.19 Other articular cartilage disorders, other specified site
CPT/HCPCS: 73721

== ENCOUNTER 2023-08-05 11:15 | Day surgery (SDC) | payer OTHER, BC, SELFPAY ==
[2023-08-05] VITALS (10 sets, daily range): BP systolic 105–149; BP diastolic 55–85; PULSE 64–96; RESP 10–22; TEMP 36.1–36.6; O2SAT 95–98; BMI 36.1
--- NOTE | 2023-08-05 11:31 | PDOC.DSDIS_ITS ---
Date of service: 08/05/23 Time of Service: 14:00 Discharge Plan Disposition Patient Disposition: Home Condition: Stable Discharge Details Attending Provider: Amador Ahmadi Primary Care Provider: Joan Moya Home Meds and New Rx's Prescriptions: New aspirin 81 mg tablet,delayed release (DR/EC) 81 mg PO DAILY 14 Days Qty: 14 0RF naproxen 250 mg tablet 250 - 500 mg PO BID PRNQty: 40 0RF Rx Instructions: take with a meal oxycodone 5 mg tablet 5 - 10 mg PO Q4H MDD 30 mg PRN (Reason: moderate to severe pain) Qty: 12 0RF Continued phentermine 37.5 mg capsule 37.5 mg PO DAILY Qty: 30 2RF Rx Instructions: must administer 2 hours after breakfast topiramate 100 mg capsule,extended release 24hr 100 mg PO DAILY Qty: 30 2RF omeprazole 20 mg capsule,delayed release(DR/EC) 20 mg PO DAILY Qty: 90 6RF levothyroxine 100 mcg tablet 100 mcg PO DAILY Qty: 90 1RF Discharge Instructions Additional Instructions: Surgery: Right knee arthroscopy with partial lateral meniscectomy, suprapatellar lysis of adhesions, and medial femoral condyle chondroplasty Activity: Weightbearing as tolerated. Advance range of motion as comfort allows. No knee brace or crutches needed as soon as comfortable. Recommend a voiding sports, pivoting, and squatting for 6-8 weeks. A physical therapy prescription will be sent electronically to start in 2 to 3 weeks. Prescriptions: Aspirin 81 mg take 1 daily to prevent a blood clot for 14 days Naproxen 250 mg take 1-2 every 12 hours with a meal as needed for moderate pain Oxycodone 5 mg take 1-2 every 4-6 hours as needed for severe pain You may use [id number] Tylenol (acetaminophen) as needed for mild pain. These pain medications may be taken all at once or in different combinations as needed. Also, recommend Colace (docusate) as a stool softener as surgery and pain medicine cause constipation. You may try [id number] diphenhydramine (Benadryl) 25-50 mg nightly as a sleep aid Dressings: Leave dressing in place for 3 days. May then remove and leave open to air or cover incisions with Band-Aids. Leave the sticky Steri-Strips in place until they fall off or remove them after you shower. May shower after 5 days. Follow-up: 10-[address] Ahmadi You may take off the leg compression stockings this evening at home. You may also leave them on a few days longer if you have a history of leg swelling or edema. Let us know right away if you develop any redness, drainage, fevers, chest pain, or trouble breathing. Do not drink alcohol or drive for at least 24 hours after anesthesia. Please call the office during business hours with any questions or concerns. Discharge Orders Discharge Orders: Discharge Order (Routine); Ordered 08/05/23 Ordered By: Amador Ahmadi DS: Diagnosis Discharge Diagnosis (1) Adhesions of knee joint: Status: Acute (2) Tear of lateral meniscus of right knee: Status: Acute
--- NOTE | 2023-08-05 11:32 | W.PM.OP ---
Date of service: 08/05/23 Time of Service: 13:00 Operative Note Operative Note DATE OF PROCEDURE: 08/05/23 PRE-OP DIAGNOSIS: Right knee 1. Lateral meniscus tear 2. Suprapatellar adhesions 3. Stiffness POST-OP DIAGNOSIS: same Right knee 1. Lateral meniscus tear 2. Suprapatellar adhesions 3. Resolved stiffness 4. Significant global synovitis 5. Large loose unstable cartilage flap and medial femoral condyle high-grade chondromalacia PROCEDURE: Right knee 1. Partial lateral meniscectomy, CPT #51214 2. Extensive synovectomy, CPT #86187: Suprapatellar lysis of adhesions, patellofemoral, anterior, and intercondylar synovectomy. 3. Chondroplasty, CPT #80604: Medial femoral condyle SURGEON: Amador Ahmadi LABORER HIGH DENSITY PRESS: None None ANESTHESIA TYPE: Local By Surgeon and General LMA/ETT Refer to Anesthesia Record ESTIMATED BLOOD LOSS: 5 PATHOLOGY: none sent TOURNIQUET TIME: 0 COMPLICATIONS: None Patient was transported to: PACU Patient's condition: stable Indications: Please see complete medical record for details. Findings: Exam under anesthesia: Essentially full restored range of motion, stable varus valgus Zana anterior drawer. Patellofemoral crepitation. Moderate valgus alignment Arthroscopic findings: Significant suprapatellar adhesions, thickening cords and bands in the suprapatellar pouch, extensive synovitis through the suprapatellar space, anterior knee, intercondylar area, and engaging in the patellofemoral compartment. Moderately sized distal aspect medial femoral condyle loose unstable flap of near full-thickness cartilage over chronic cartilage bone fibrillations about 2 x 2 cm. No medial meniscus tear. Intact ACL PCL. Lateral meniscus partial tear near the root and anterior horn. Moderate grade chondromalacia throughout. Procedure Description: In the operating room, general anesthesia was induced. The patient was positioned supine on the operating room table. All bony prominences were well-padded. Preoperative antibiotics were administered. The knee was prepped and draped in the usual sterile fashion. The correct patient, procedure, and side of the procedure were all verified prior to incision. Exam under anesthesia was performed. 10 cc of 0.25% bupivacaine containing epinephrine was infiltrated about the planned anteromedial and anterolateral knee arthroscopy portals. The portals were established and a complete diagnostic arthroscopy was performed with relevant findings detailed above. The mechanical shaver was used to debride significant synovitis in the suprapatellar pouch, patellofemoral compartment, anterior, and intercondylar areas. The radiofrequency wand was used to achieve hemostasis and further debride inflamed synovial tissue especially anteriorly, intercondylar, patellofemoral, and suprapatellar pouch as well. Multiple thickened cano suprapatellar adhesions and synovial bands that had to be resected with the meniscal biters before being resected to a normal synovial margin using the mechanical shaver and then hemostasis with radiofrequency wand. Notable separate surgical time was spent extensively debriding the suprapatellar adhesions and significant global synovitis to prevent recurrence of stiffness and pain postoperatively. The medial femoral condyle cartilage lesion was localized with the knee bent over the table at 90 degrees, the above described moderately large cartilage flap was about full-thickness, chronic appearing given the underlying bone fibrillations, but was readily displaceable as a loose flap. In order to prevent pain and loose body propagation, it was debrided into pieces using the meniscal biters, which were removed with the mechanical shaver. The margin of the lesion was then contoured to a stable edge taking care to preserve as much cartilage as reasonably possible and then these pieces were removed with mechanical shaver again. The mechanical shaver was then usually to debride around the margins to contour the cartilage into the uninjured areas and ensure no prominent bony aspects throughout the lesion bed. The lateral meniscus was then inspected in the [id number] position, it had abnormal structure throughout the body and anterior horn as well as a partial moderate thickness tearing at the root. The mechanical biter was used to contour and reduce excessively medialized torn tissue, loose pieces removed mechanical shaver, which was also used to contour the meniscal remnant as well as debride about the root of frayed edges but preserve as much root meniscal tissue as possible. The root was then lightly ablated for a torn tissue and the ablator was also used anteriorly about the peripheral inflamed margin about the anterior horn tear. Under direct arthroscopic visualization an 18-gauge needle was passed into the knee from superolateral into the suprapatellar pouch. The knee was copiously irrigated with arthroscopic fluid until there was a clear effluent before being drained of all fluid. The anteromedial and anterolateral portals were closed in 3-0 Monocryl in a buried interrupted fashion. 20 cc of 0.25% bupivacaine with epinephrine containing 4 mg of morphine was infiltrated into the knee through the previously placed needle. Mastisol, Steri-Strips, and 4 x 4 gauze were applied over the incisions followed by sterile soft roll. The knee was then wrapped gently with an KEREN comressive bandage. The patient awoke from anesthesia without complication and was transferred to the recovery room in a stable condition.
[2023-08-05] MEDS: Lactated Ringers 1,000 ML 30 ML IV (12:05)
--- NOTE | 2023-08-05 12:32 | W.ANESPRE ---
General Info Date of Service Date Performed: 08/05/23 Height: 5 ft 8 in Weight: 108 kg Body Mass Index (BMI): 36.1 Surgical Procedure: Operation Date: 08/05/23 13:10 Proposed Procedure Side Surgeon p Knee Arthroscopy w/Partial Lateral Meniscectomy, Lysis of Adhesions, any other indicated surgery Right Amador Ahmadi MD s Knee Manipulation of Knee Right Amador Ahmadi MD Meds Allergies and Home Medications Allergies Allergy/AdvReac Type Severity Reaction Status Date / Time No Known Allergies Allergy Verified 08/05/23 11:58 Home Medication Medication Instructions Recorded omeprazole 20 mg capsule,delayed 20 mg PO DAILY #90 caps 02/08/23 release phentermine 37.5 mg capsule 37.5 mg PO DAILY #30 caps 05/28/23 topiramate 100 mg capsule,extended 100 mg PO DAILY #30 caps 05/28/23 release 24 hr levothyroxine 100 mcg tablet 100 mcg PO DAILY #90 tabs 07/19/23 Current Visit Medications: Current Medications Generic Name Dose Route Start Last Admin Trade Name Freq PRN Reason Stop Dose Admin Acetaminophen 1,000 mg 08/05/23 11:28 Acetaminophen 500 Mg Tab PO 09/04/23 11:27 Q6H PRN PRN Ringer's Solution 1,000 mls @ 30 mls/hr 08/05/23 06:00 08/05/23 12:05 IV 09/03/23 23:59 30 mls/hr INFUSION RAJEEV Administration Cefazolin Sodium/Dextrose 2 gm in 50 mls @ 100 mls/hr 08/05/23 06:00 Ancef Duplex IVPB 08/05/23 16:00 PREOP RAJEEV IV Miscellaneous Supplies 1 each 08/05/23 06:00 Iv Access IV 09/03/23 23:59 DIRECTED RAJEEV Naproxen 250 - 500 mg 08/05/23 11:28 Naproxen 500 Mg Tab PO 09/04/23 11:27 BID PRN PRN Oxycodone HCl 0 mg 08/05/23 11:28 Oxycodone 5 Mg Tab PO 09/04/23 11:27 Q3H PRN PRN Pain Sodium Chloride 0 ml 08/05/23 06:00 Normal Saline Flush 10 Ml Syr IV 09/03/23 23:59 PRN PRN Sodium Chloride 0 ml 08/05/23 06:00 Normal Saline 10 Ml Vial IJ 09/03/23 23:59 DIRECTED PRN Sterile Water 0 ml 08/05/23 06:00 Water,Injection,Sterile 10 Ml Vial IJ 09/03/23 23:59 DIRECTED PRN PFSH Active Problems Active Problems: Problem Status Onset Code Adhesions of knee joint M23.8X9 Tear of lateral meniscus of right knee S83.281A Obstructive sleep apnea syndrome 02/28/18 G47.33 Non-alcoholic fatty liver disease K76.0 Hypothyroidism 02/28/18 E03.9 Hypercholesterolemia 05/27/09 E78.00 Gastroesophageal reflux disease with esophagitis 01/20/01 K21.0 Osteopenia of lumbar spine M85.88 Irritable bowel syndrome K58.9 Meralgia paresthetica of both lower extremities G57.13 Severe obesity (BMI 35.0-39.9) with comorbidity E66.01 Plantar wart, left foot B07.0 Corns and callosities L84 Foot pain M79.673 Foreign body (FB) in soft tissue M79.5 Onycholysis L60.1 Medical History Medical History H/O tobacco use, presenting hazards to health Chronic pain of left knee s/p injection with improvement 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 Murray. DJD (degenerative joint disease) of cervical spine DDD (degenerative disc disease), cervical Fibrocystic disease of breast (01/04/12) Surgical History Surgical History Status post de Quervain's release surgery S/P cataract extraction H/O toe surgery Dr. Vick; mucoid cyst of toe S/P shoulder surgery S/P carpal tunnel release S/P hemorrhoidectomy (~2011) S/P hysterectomy with oophorectomy (~2000) Tobacco Smoking/Tobacco Use Status: Former Tobacco Use Passive smoking exposure: Yes Second hand exposure: Yes Alcohol Alcohol Intake: current Alcohol intake frequency: a few times a week Alcohol type: beer, wine and hard liquor Substance Use Substance use: Never Substance use type: does not use Details: alcohol: t-1, one glass of wine Prental History History 2 Para 1 Hx # Term Pregnancies Multiple births Hx # Pregnancies Ectopic pregnancies AB induced Hx Number of Living Children AB spontaneous Vital Signs and Lab Results Vital Signs Most Recent Vital Signs in EMR: Most Recent Vital Signs Temp Pulse Resp BP Pulse Ox 36.5 C 79 18 149/74 H 97 08/05/23 11:56 08/05/23 11:56 08/05/23 11:56 08/05/23 11:56 08/05/23 11:56 Lab Results Blood Type / Crossmatch: No Data to Display Complete Blood Count: No Data to Display Complete Metabolic Panel: No Data to Display Liver Function Panel: No Data to Display Coagulation Panel: No Data to Display Cardiac Panel: No Data to Display Arterial Blood Gas: No Data to Display Venous Blood Gas: No Data to Display Pancreas Panel: No Data to Display Thyroid Panel: No Data to Display Infectious Disease: No Data to Display Blood Cultures: No Data to Display Toxicology Panel: No Data to Display Anesthesia Assessment and Plan Anesthesia History Personal History: No History of Anesthesia Complications Family History: No Family History of Anesthesia Complications Exercise Tolerance Exercise Tolerance: Metabolic Equivalents>4 Pertinent Negatives Pertinent Negatives: No Major Cardiovascular Symptoms or Complaints and No Major Pulmonary Symptoms or Complaints Cardiac & Pulmonary Exam Cardiac Exam: Normal S1/S2 Heart Sounds Pulmonary Exam: Clear Bilateral Breath Sounds Implantable Cardiac Device Does patient have a Pacemaker or an ICD?: No Airway Exam Known Difficult Airway: No Mallampati Class: 2 Mouth Opening: Normal (> 3cm) Thyromental Distance: Greater than 3 cm Neck Range of Motion: Full ROM Neck Circumference: Thick Teeth Condition: Normal Dentition ASA Classification ASA Score: ASA 2 Emergency Case?: No NPO Status NPO Status: NPO Clears >2 hours, Solids >8 hours Anesthesia Plan Resuscitation Status: Full Code Anesthesia Technique: General Anesthesia Airway Planned: LMA Monitors Used: Standard Monitors
[2023-08-05] MEDS: ceFAZolin 2 GM/50 ML BAG IVPB (13:12)
[2023-08-05] MEDS: EPINEPHrine 10 MG/10 ML ML (13:30)
[2023-08-05] MEDS: Bupivacaine 0.25% Pres-Free 30 ML VIAL (13:30)
[2023-08-05] MEDS: MORPHine 4 MG/ML SYR (14:01)
[2023-08-05] MEDS: fentaNYL 100 MCG/2 ML VIAL IVP ×2 (14:34→14:43)
[2023-08-05] MEDS: HYDROmorphone 2 MG/ML SYR IVP (15:02)
[2023-08-05] MEDS: Normal Saline 10 ML VIAL IJ (15:02)
[2023-08-05] MEDS: oxyCODONE 5 MG TAB PO (15:39)
--- NOTE | 2023-08-05 15:41 | W.ANESPOSTOP ---
Postoperative Evaluation Date, Time and Location Date Performed: 08/05/23 Time Performed: 15:41 Patient Location: Day Surgery Unit Vital Signs Most Recent Imported Vital Signs: Most Recent Vital Signs Temp Pulse Resp BP Pulse Ox 36.6 C 67 13 133/85 98 08/05/23 15:04 08/05/23 15:04 08/05/23 15:04 08/05/23 15:04 08/05/23 15:04 Pain Score Most Recent Pain Score: Most Recent Pain Score Pain Level 8 08/05/23 14:34 Assessment Mental Status: Awake (Alert & Oriented to Patient Baseline) Airway and Respiratory Function: Patent airway with normal (patient baseline) respiratory exam Cardiovascular Function: Hemodynamically Stable Hydration Status: Adequately Hydrated Nausea & Vomiting: No Nausea or Vomiting Pain: Pain is Moderate or Severe Postoperative Pain Management: Pain being addressed with medication Peripheral Nerve Block: Patient did not receive a nerve block
== END 2023-08-05 17:18 | disposition home or self-care (01) ==
PROVIDERS: PCP Family Medicine; Visit Provider Student in an Organized Health Care Education/Training Program
PROC: (CPT 29870; principal; 2023-08-05 13:00)
DX: M23.8X1 Other internal derangements of right knee; S83.281A Other tear of lateral meniscus, current injury, right knee, initial encounter; X58.XXXA Exposure to other specified factors, initial encounter
CPT/HCPCS: 29876; 29881; J0131; J0690; J1100; J1170; J1885; J2001; J2270; J2405; J2704; J3010

== ENCOUNTER → 2023-08-24 00:26 | Outpatient (CLI) | payer OTHER, BC, SELFPAY ==
--- NOTE | 2023-08-24 08:30 | DI.MAMMO_ITS ---
Exam(s) MAMMO SCREENING EXAM: MAMMO SCREENING Eric et CLINICAL HISTORY: screening TECHNIQUE: Bilateral full field digital CC and MLO mammographic images were obtained with 3D tomosyn thesis and utilizing computer aided detection (CAD). COMPARISON: Available for comparison. FINDINGS: Masses/Architectural Distortion: None seen. Microcalcifications: No suspicious pleomorphic-type are seen. Skin Thickening/Nipple Retraction: None. IMPRESSION: 1. No significant interval change with no specific features of malignancy noted. 2. Unless there is more urgent need, screening mammography is recommended, as per [employer] guidelines. BI-RADS Category 1 - Negative Breast Density - Category A - Almost entirely fatty Breast density category C or D implies that the patient has dense breast tissue. Dense breast tissue is very common and is not abnormal but dense breast tissue can make it harder to find cancer on a ma mmogram. Also, dense breast tissue may increase their breast cancer risk. This information about the result of the mammogram report was provided to the patient to raise their awareness. Use this report when you speak with the patient about their risks for breast cancer, which includes their family hist ory. At that time, you may recommend for more screening tests (Ultrasound or MRI) as they might be us eful based on their risk. A negative radiographic report should not delay biopsy if a dominant or clinically suspicious mass is present. Up to ten percent of cancers are not identified on mammography. A negative report may reinforce clinical impression. Adenosis and dense breasts may obscure an underlying neoplasm. False positive reports average 6 to 10%. Patient will receive a letter notifying them of these results.
== END ==
PROVIDERS: PCP Family Medicine; Visit Provider Obstetrics & Gynecology
DX: Z12.31 Encounter for screening mammogram for malignant neoplasm of breast (principal)
CPT/HCPCS: 77063; 77067

== ENCOUNTER 2023-09-01 04:29 | Outpatient (CLI) | payer OTHER, BC, SELFPAY ==
[2023-09-01 12:37] LABS: HGB 13.9 g/dL (11.2-15.7); MCH 31.1 pg (27.0-33.0); MCHC 33.1 % (32.0-36.0); MCV 94 fL (80-95); MPV 11.3 fL (8.0-11.0); Platelet Count 179 10^3/uL (130-400); RBC 4.47 10^6/uL (3.93-5.22); RDW 13.1 % (11.7-14.6); RDW-SD 44.5 fL; WBC 4.57 10^3/uL (4.4-10.8)
[2023-09-01 12:58] LABS: ALT 50 U/L (14-59); AST 26 U/L (15-37); Albumin 3.5 g/dL (3.4-5.0); Alkaline Phosphatase 74 U/L (46-116); Anion Gap 8.1 mmol/L (3-11); BUN 12 mg/dL (7-18); CO2 25.9 mmol/L (21.0-32.0); CREATININE 0.8 mg/dL (0.55-1.02); Calcium 8.7 mg/dL (8.5-10.1); Chloride 107 mmol/L (98-107); Estimated GFR 83.78 (mL/min/1.73m2); Glucose 125 mg/dL (74-106); Potassium 4.1 mmol/L (3.5-5.1); Sodium 141 mmol/L (136-145); TSH (W/Ref FT4) 2.18 uIU/mL (0.36-3.74)
[2023-09-01 13:11] LABS: Bilirubin, Total 0.5 mg/dL (0.2-1.0)
== END 2023-09-01 04:30 | disposition home or self-care (01) ==
LOC: LOS 04:40
PROVIDERS: PCP Family Medicine; Visit Provider Family Medicine
DX: K76.0 Fatty (change of) liver, not elsewhere classified (principal); Z00.00 Encounter for general adult medical examination without abnormal findings; E03.9 Hypothyroidism, unspecified
CPT/HCPCS: 36415; 80053; 85027; 84443

== ENCOUNTER → 2023-12-16 04:51 | Outpatient (CLI) | payer OTHER, BC, SELFPAY ==
--- NOTE | 2023-12-16 08:00 | DI.DEXA_ITS ---
Exam(s) XR DEXA BONE DENSITY W/WO NICK EXAM: XR DEXA BONE DENSITY W/WO NICK CLINICAL HISTORY: screening M85.88 DISORDER BONE DENSITY N95.9 MENOPAUSAL TECHNIQUE: COMPARISON: CR XR DEXA BONE DENSITY W/WO NICK from 10/14/2021 FINDINGS: Lateral Spine Image: Unremarkable. No compression deformities identified. Left hip: Total T-Score: 0.1. This compares to -0.2 on the prior examination. Total Z-Score: 1.1 T- and Z-scores: No evidence of osteoporosis. Lumbar Spine: Total T-Score: -2.0. This compares to -2.1 on the prior examination. Total Z-Score: -0.5 T- and Z-scores: Findings are consistent with osteopenia. IMPRESSION: No evidence of osteoporosis.
== END ==
PROVIDERS: PCP Family Medicine; Visit Provider Family Medicine
DX: N95.9 Unspecified menopausal and perimenopausal disorder (principal); M85.88 Other specified disorders of bone density and structure, other site; Z13.820 Encounter for screening for osteoporosis
CPT/HCPCS: 77080

== ENCOUNTER 2024-04-11 15:49 | Outpatient (CLI) | payer OTHER, BC, SELFPAY ==
--- NOTE | 2024-04-11 11:15 | DI.RAD_ITS ---
Exam(s) XR KNEE RT 2V AP,LAT EXAM: XR KNEE RT 2V AP,LAT CLINICAL HISTORY: RIGHT KNEE PAIN. TECHNIQUE: 2D digital imaging was performed of the right knee. Two views obtained. AP and lateral views were obtained. COMPARISON: CR XR KNEE RT 3V AP,LAT,SIMI from 05/10/2023 FINDINGS: BONES: No acute fracture is present. No bony destructive lesion is seen. JOINTS: Small osteophytes are seen at the posterior patella and the lateral femoral tibial joint. Th ere is a small joint effusion. SOFT TISSUE: Normal. IMPRESSION: Mild degenerative changes seen in the right knee. DATA REPOSITORY: RADIATION DOSE DELIVERED:
== END 2024-04-11 15:50 | disposition home or self-care (01) ==
LOC: DIORS 15:49
PROVIDERS: PCP Family Medicine; Visit Provider Student in an Organized Health Care Education/Training Program
DX: M94.261 Chondromalacia, right knee (principal)
CPT/HCPCS: 73560

== ENCOUNTER 2024-05-19 02:19 | Outpatient (CLI) | payer OTHER, BC, SELFPAY ==
[2024-05-19 10:51] LABS: Hemoglobin A1C 5.4 % (<5.7)
[2024-05-19 11:17] LABS: ALT 56 U/L (14-59); AST 36 U/L (15-37); Albumin 3.8 g/dL (3.4-5.0); Alkaline Phosphatase 90 U/L (46-116); Anion Gap 6.1 mmol/L (3-11); BUN 11 mg/dL (7-18); Bilirubin, Total 0.92 mg/dL (0.2-1.0); CO2 27.9 mmol/L (21.0-32.0); CREATININE 0.8 mg/dL (0.55-1.02); Calcium 8.9 mg/dL (8.5-10.1); Chloride 105 mmol/L (98-107); Estimated GFR 83.26 (mL/min/1.73m2); Glucose 99 mg/dL (74-106); Potassium 3.9 mmol/L (3.5-5.1); Sodium 139 mmol/L (136-145); TSH (W/Ref FT4) 4.24 uIU/mL (0.36-3.74); Total Protein 7.3 g/dL (6.4-8.2); Vitamin B12 301 pg/mL (193-986); Vitamin D 25 Total 31.7 ng/mL (30-100)
[2024-05-19 11:34] LABS: FREE T4 0.81 ng/dL (0.76-1.46)
== END 2024-05-19 02:20 | disposition home or self-care (01) ==
LOC: LOS 02:19
PROVIDERS: PCP Family Medicine; Visit Provider Family Medicine
DX: E03.9 Hypothyroidism, unspecified (principal); E66.01 Morbid (severe) obesity due to excess calories; R73.01 Impaired fasting glucose; Z00.00 Encounter for general adult medical examination without abnormal findings; G57.13 Meralgia paresthetica, bilateral lower limbs
CPT/HCPCS: 36415; 80053; 82306; 82607; 83036; 84439; 84443

== ENCOUNTER 2024-10-27 00:48 | Outpatient (CLI) | payer OTHER, BC, SELFPAY ==
[2024-10-27 12:40] LABS: TSH (W/Ref FT4) 1.84 uIU/mL (0.36-3.74)
== END 2024-10-27 00:49 | disposition home or self-care (01) ==
LOC: LOS 00:49
PROVIDERS: PCP Family Medicine; Visit Provider Family Medicine
DX: E03.9 Hypothyroidism, unspecified (principal)
CPT/HCPCS: 36415; 84443

== ENCOUNTER 2025-02-27 11:33 | Outpatient (CLI) | payer OTHER, BC, SELFPAY ==
[2025-02-27 12:57] LABS: Uric Acid 6.0 mg/dL (2.6-6.0)
== END 2025-02-27 11:34 | disposition home or self-care (01) ==
LOC: LBO 11:33
PROVIDERS: PCP Family Medicine; Visit Provider Podiatrist
DX: E79.0 Hyperuricemia without signs of inflammatory arthritis and tophaceous disease (principal)
CPT/HCPCS: 36415; 84550

== ENCOUNTER 2025-02-27 11:34 | Outpatient (CLI) | payer OTHER, BC, SELFPAY ==
--- NOTE | 2025-02-27 11:05 | DI.RAD_ITS ---
Exam(s) XR ANKLE RT COMPLETE EXAM: XR ANKLE RT COMPLETE CLINICAL HISTORY: Ankle joint pain, plantar fascitis, M72.2. TECHNIQUE: 2D digital imaging was performed. COMPARISON: No exams were available for comparison FINDINGS: 3 views There is soft tissue swelling both sides the ankle. There are no fractures nor widening the ankle mortise. Talar dome appears unremarkable. There are no obvious degenerative changes in the tibiotalar and subtalar joints. There is a moderate size inferior calcaneal spur. There is no calcification in the plantar fascia. No obvious osseous tarsal coalition. IMPRESSION: Soft tissue swelling but no acute osseous findings in the ankle. DATA REPOSITORY: RADIATION DOSE DELIVERED:
--- NOTE | 2025-02-27 11:05 | DI.RAD_ITS ---
Exam(s) XR FOOT RT COMPLETE EXAM: XR FOOT RT COMPLETE CLINICAL HISTORY: Midfoot/heel pain, rt foot pain, plantar fascitis, M79.671, M72.2. TECHNIQUE: 2D digital imaging was performed. COMPARISON: CR XR FOOT LT COMPLETE from 05/10/2023 FINDINGS: 3 views No evidence of fracture or diastasis of the Lisfranc joint. Bone density is age-appropriate. No osseous lesions. Mild hallux valgus. There are no degenerative changes in the great toe metatarsophalangeal joint. There is a moderate size inferior calcaneal spur evident. Tarsometatarsal joints are u nremarkable. Bone density normal. No osseous lesions. IMPRESSION: As above but no acute osseous findings in the foot. DATA REPOSITORY: RADIATION DOSE DELIVERED:
== END 2025-02-27 11:54 ==
PROVIDERS: PCP Family Medicine; Visit Provider Podiatrist
DX: M79.671 Pain in right foot (principal); M72.2 Plantar fascial fibromatosis
CPT/HCPCS: 73610; 73630

== ENCOUNTER → 2025-08-21 07:36 | Outpatient (CLI) | payer OTHER, SELFPAY ==
--- NOTE | 2025-08-21 06:30 | DI.MRI_ITS ---
Exam(s) MR LOWER EXTREMITY RT WO EXAM: MR LOWER EXTREMITY RT WO CLINICAL HISTORY: R foot pain x mos,m79.671 TECHNIQUE: Multiplanar multisequence MRI was performed without intravenous contrast. Field of view includes the ankle and foot. COMPARISON: CR XR FOOT RT COMPLETE from 02/27/2025 FINDINGS: BONES/JOINTS: No discrete fracture. No bone lesions identified. The talar dome is smooth. The ankle mortise is maintained. No joint effusion is present. Small plantar calcaneal spur. There is spurring and degenerative change at the posterior talocalcaneal joint. There is some adjacent edema in the talus. There is mild marrow edema in the anterior talus and adjacent portion of the navicular. This could in part be secondary to degenerative changes and/ or altered weight-bearing. Mild intertarsal degenerative changes. MUSCULOTENDINOUS STRUCTURES: Achilles tendon: Unremarkable. Plantar fascia: Unremarkable. Anterior Extensor tendons: Unremarkable. Posterior Tibialis: Unremarkable. Flexor Digitorum longus: Unremarkable. Flexor Hallucis longus: Unremarkable. Peroneus longus: Unremarkable. Peroneus brevis:Unremarkable. SOFT TISSUES: Unremarkable. IMPRESSION: No evidence of fracture or tendon abnormality. Degenerative changes at the posterior talocalcaneal joint. Mild intertarsal degenerative changes. Mild marrow edema in the anterior calcaneus and navicular could be secondary to altered weight-bearing and or degenerative changes. DATA REPOSITORY:
== END ==
LOC: DI 07:36
PROVIDERS: PCP Family Medicine; Visit Provider Family Medicine
DX: M79.671 Pain in right foot (principal)
CPT/HCPCS: 73718